=== PATIENT | male | born 1960 | race Caucasian/White ===

== ENCOUNTER 2018-11-12 07:10 | Outpatient (CLI) | payer OTHER ==
[2018-11-12] MEDS ORDERED: Gadobenate Dimeglumine 529 MG/1 ML (20ML VIAL) ONE (09:00)
--- NOTE | 2018-11-12 13:57 | MRI ---
BRAIN MRI WITH AND WITHOUT CONTRAST: Comparison: 07-25-18 History: Malignant neoplasm overlapping site of right bronchus. FINDINGS: Re-demonstrating of the susceptibility foci, the largest of which involves the high right frontal par ietal convexity, medially and the smaller involves the medial left frontal subcortical region. There is a moderate degree of vasogenic edema surrounding the larger region of the right frontoparietal reg ion. Intrinsic T1 hyperintense signal is present which may relate to residual blood products from a h emorrhagic metastasis, in light of the history of pulmonary malignancy. About the periphery of the ritchie sceptibility and intrinsic regional signal, there is evidence to indicate progressive peripheral enha ncement at site of above described moderate vasogenic edema. Area of enhancement measures 3 cm cranio caudal x 2.3 cm AP x 1.6 cm transverse. Grossly stable punctate enhancement at the medial left fronta l lobe within the region of the above noted susceptibility is seen. There is no midline shift. No nael triculomegaly. IMPRESSION: Progressive perilesional enhancement with moderate surround vasogenic edema of the medial right high frontoparietal convexity. There remains susceptibility and evidence to indicate intrinsic T1 signal f avoring sequellae from hemorrhagic metastasis in light of the patient's history of pulmonary malignan cy. Recommend continued imaging follow up. POS: MARK
--- NOTE | 2018-11-13 10:01 | CT ---
CT CHEST WITH CONTRAST CT ABDOMEN WITH CONTRAST CT PELVIS WITH CONTRAST: Date: 11/12/18 HISTORY: Malignant neoplasm of overlapping sites of the right bronchus. COMPARISON: Abdomen CT dated 03/07/18. FINDINGS: Nonspecific ground-glass opacities are present in the right lung base peripherally, likely a componen t of chemo-related lung disease. The pulmonary trunk is dilated, measuring 42 mm, similar. The triangular shaped nodule along the righ t minor fissure is unchanged, likely a small perifissural lymph node. There is a suture in the right upper lobe. No pneumothorax. No effusion. There is a defect of the left anterior thoracic wall, likely prior surgical resection, with a patch. No acute displaced rib fracture. No suspicious osteolytic or osteoblastic lesions. The sternum and manubrium are intact. Thoracic and lumbar spine are intact. There are small mediastinal, likely reactive, lymph nodes, especially in the pretracheal region, alth ough do not reach size criteria for enlargement. The adrenal glands are hypertrophied. There is aneurysmal dilatation of the infrarenal abdominal aort a, which measures up to 3.9 cm, similar to slightly increased in size from the comparison examination . No retroperitoneal adenopathy. Hypodensity intrapolar left renal cortex is similar. No splenic or liver mass. Gallbladder is contracted. No dilated loops of large or small bowel. The appendix is visualized and is normal. IMPRESSION: 1. Unchanged examination of chest, abdomen, and pelvis. No evidence for disease recurrence. 2. 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 POS: MARK
== END 2018-11-12 07:11 | disposition home or self-care (01) ==
LOC: SCSCT 07:10
PROVIDERS: ATTEND Internal Medicine Hematology & Oncology
DX: C34.81 Malignant neoplasm of overlapping sites of right bronchus and lung (principal); R91.8 Other nonspecific abnormal finding of lung field; G93.6 Cerebral edema
CPT/HCPCS: 70553; 71260; 74177; A9579

== ENCOUNTER 2019-01-07 09:38 | Outpatient (CLI) | payer OTHER ==
[2019-01-07] MEDS ORDERED: Gadobenate Dimeglumine 529 MG/1 ML (20ML VIAL) ONE (10:19)
--- NOTE | 2019-01-07 13:23 | MRI ---
MRI BRAIN WITH AND WITHOUT CONTRAST: DATE: 01-07-19 HISTORY: 58-year-old male with C79.31 adenocarcinoma-metastatic; C34.81 malignant neoplasm of overlapping site s of right bronchus. COMPARISON: 11-12-18, and outside facility's 04-02-18 and 03-28-18. TECHNIQUE: Multiple sequences obtained in axial, sagittal, and coronal planes; pre and post IV injection of gado linium-based contrast agent: 20 mL MultiHance. FINDINGS: Most of the current exam's images are severely degraded by patient motion. Again noted is the hemorrh agic mass in the right paramedian cerebrum, centered in the right centrum semiovale. It contains cent ral extracellular met hemoglobin, and a complete rim of hemosiderin, and has a popcorn internal appea glenda on T2WI, typical for cavernoma. It is surrounded by a moderate sized region of vasogenic edema. Located more anteriorly in a left paramedian frontal gyrus (apparently centered at the ovalle-white mat ter junction as seen on high quality outside facility image a 04-02-18, Image 34 of 94 Series 3), is t he much smaller focus of hemosiderin stain. It is difficult to obtain accurate size measurements for both of these lesions on the current study b ecause of the severe motion artifact. However, not counting the vasogenic edema, the size of the cent ral lesion itself probably has not significantly changed. No obvious new lesions are visualized. Vent ricles are normal in size and configuration. No significant mass effect or midline shift. Again noted are the extensive bilateral mastoid effusions. Enlarged lateral retropharyngeal lymph nodes are note d bilaterally. IMPRESSION: 1. No major interval change in the size of the hemorrhage right cerebral intraaxial mass with surroun ding vasogenic edema compared to outside MRI dating back to 03-28-18. 2. No significant interval change in the tiny hemosiderin stain in the left parasagittal frontal gyru s dating back to prior outside images of 03-28-18. 3. The current images are severely degraded by patient motion. 4. Despite the history of lung cancer, there is a strong possibility that the right mass could repres ent a cavernous malformation; and the tiny lesion on the left as another cavernous malformation or so me other non-neoplastic lesion; as alternative diagnoses to hemorrhagic brain metastases. 5. Continued follow up is recommended. BRUCE Schneider POS: TPC
== END 2019-01-07 09:39 | disposition home or self-care (01) ==
LOC: TBSIIMAG 09:38
PROVIDERS: ATTEND Surgery
DX: C79.31 Secondary malignant neoplasm of brain (principal); I61.9 Nontraumatic intracerebral hemorrhage, unspecified
CPT/HCPCS: 70553; A9577

== ENCOUNTER 2019-03-02 08:50 | Outpatient (CLI) | payer OTHER ==
[2019-03-02] MEDS ORDERED: Iopamidol 370 76% 100 ML VIAL ONE (09:00)
--- NOTE | 2019-03-02 13:59 | CT ---
Contrast-enhanced CT images of chest, abdomen and pelvis. Comparison made to previous exam from 11/12/2018. The patient's had a previous left upper lobectomy. The mediastinal lymph nodes are minimally enlarged but not significantly changed since the previous comparison exam. Surgical changes seen in the right middle lobe. This focal area of pleural thickening seen in the right middle lobe axial image #3 6 adjacent to the minor fissure. Previously noted bilateral areas of groundglass airspace opacities have resolved. No definite evidence of osseous lesion seen. No evidence of pleural or pericardial effusion seen. CT abdomen and pelvis: The liver is unremarkable except for tiny focal areas of likely cysts which ar e stable. Small early area of splenic calcifications seen compatible with previous granulomatous disease. The spleen is unremarkable. The stomach and gallbladder are unremarkable. The pancreas is un remarkable. Small stable cyst seen in the left kidney unchanged since the previous exam. The right kidney is unremarkable. Bilateral adrenal hypertrophy is seen. There is an infrarenal abdominal aortic aneurysm maximum axial diameter measuring 3.8 x 3.6 cm. The a neurysm extends from approximately 3.8 mm inferior to the takeoff of the renal arteries down to the aortic bifurcation. Superior inferior length of the aneurysm measures 7.6 cm. The aneurysm does not extend into the iliac arteries. The small bowel loops are unremarkable. A normal appendix is visualized. The colon is unremarkable. IMPRESSION: 1: Abdominal aortic aneurysm. 2: Postsurgical changes in the lungs. 3: No newly developed lung abnormality seen.
== END 2019-03-02 08:51 | disposition home or self-care (01) ==
LOC: SCSCT 08:50
PROVIDERS: ATTEND Internal Medicine Hematology & Oncology
DX: C34.81 Malignant neoplasm of overlapping sites of right bronchus and lung (principal); I71.4 Abdominal aortic aneurysm, without rupture; Z98.890 Other specified postprocedural states
CPT/HCPCS: 71260; 74177; Q9967

== ENCOUNTER 2019-03-03 11:25 | Day surgery (SDC) | payer OTHER ==
[2019-03-02 12:57] VITALS: BMI 33.2
[2019-03-03 12:28] LABS: Calc. Creatinine Clearance 149 mL/min (70-130); Estimated GFR-MDRD Greater than 90
--- NOTE | 2019-03-03 14:49 | MRI ---
MRI Brain W WO Con: 03/03/2019 12:00 AM CLINICAL HISTORY: Neoplasm. COMPARISON: 01/07/2019 FINDINGS: Extra axial spaces: Normal in size and morphology for the patient's age. Hemorrhage: Nidus of susceptibility within the posterior right centrum semiovale is present, grossly stable. Additional smaller susceptibility focus at the medial left frontal lobe is also redemonstrated. Ventricular system: Normal in size and morphology for the patient's age. Basal cisterns: Normal. Cerebral parenchyma: Redemonstration of enhancing mass which is associated with the above-described s usceptibility focus, involving posterior right centrum semiovale. Size of this finding is slightly distorted by motion. Diameter measures approximately 2.4 cm, slightly increased in volume. Surroundin g vasogenic edema remains, and has increased in volume. Punctate enhancement at the medial left frontal lobe correlating to site of susceptibility remains. Midline shift: None. Cerebellum: Normal. Brainstem: Normal. Paranasal sinuses:Scattered paranasal sinus mucosal thickening. Bilateral mastoid fluid IMPRESSION:Redemonstration of bilateral cerebral hemispheric susceptibility foci. Underlying enhancin g lesion of the right centrum semiovale currently measures 2.4 cm. This is slightly increased in volume although direct comparison is difficult due to the varying degrees of motion artifact between the 2 exams. Morphology of finding as well as the persistent, and progressive vasogenic edema favors hemorrhagic metastasis. Continued short-term imaging follow-up is recommended
== END 2019-03-03 15:45 | disposition home or self-care (01) ==
LOC: SDC/OP 11:25
PROVIDERS: ATTEND Surgery
DX: C79.31 Secondary malignant neoplasm of brain (principal); Z79.899 Other long term (current) drug therapy; Z88.5 Allergy status to narcotic agent; Z90.49 Acquired absence of other specified parts of digestive tract; Z90.2 Acquired absence of lung [part of]
CPT/HCPCS: 36415; 70553; 80053; 82248; 82565; 83615; 84100; 84443; 84550

== ENCOUNTER 2019-04-27 12:21 | Day surgery (SDC) | payer OTHER, MEDICARE ==
[2019-04-24 10:27] VITALS: BMI 32.3
--- NOTE | 2019-04-27 15:14 | MRI ---
BRAIN MRI WITH AND WITHOUT CONTRAST: DATE: 04/27/2019 COMPARISON: 03/03/2019 and prior. HISTORY: Intracranial metastatic disease. TECHNIQUE: Multiplanar multisequence MR imaging of the brain obtained with and without contrast. FINDINGS: The diffusion weighted imaging demonstrates no evidence for acute infarction. The gradient echo imaging demonstrates a focus of intra-axial blooming artifact involving the superio r aspect of the right temporal lobe. This focus of blooming artifact measures approximately 1.8 cm in AP dimension, similar when compared to the most recent prior examination. This lesion is of mixed heterogeneous signal intensity on FLAIR, T2, and T1 weighted imaging, which includes areas of T1 hypointensity and hyperintensity, on the basis of blood products. The postcontrast imaging demonstrat es peripheral enhancement of the lesion within the superior aspect of the right frontal lobe, the enhancing component measuring at least 2.7 cm in AP dimension, 2.3 cm in transverse dimension, and 3. 5 cm in craniocaudal dimension. This enhancing lesion has grown since the most recent prior examination at which time it measured approximately 2.4 x 2.0 x 3.1 cm. It appears to have grown sinc e the 01/07/2019 examination as well, although exact measurement is limited on that study secondary to motion. This has definitively enlarged since the 11/12/2018 examination at which time it measured 0.2 x 1.5 x 3.3 cm. There is prominent surrounding vasogenic edema involving the deep and subcortical white matter of the right frontal and anterior right parietal lobe extending inferiorly to involve the periventricular white matter adjacent to the body of the right lateral ventricle. The vasogenic edema associated with this lesion appears to have increased since the 03/03/2019 examination. There is no doubt this vasogenic edema has increased since the 11/12/2018 exam. There is an additional focus of blooming artifact within the medial aspect of the left frontal lobe. There is no surrounding vasogenic edema. This area of blooming artifact measures approximately 6 mm, which is unchanged when compared to studies dating back to 03/28/2018. This medial left frontal lo be focus of blooming artifact demonstrates no T2 correlate and demonstrates no abnormal enhancement. While this could represent a second lesion, this could also simply represent a focus of calcification and/or cavernoma. The visualized paranasal sinuses appear grossly unremarkable. There is a nonspecific mastoid effusion on the right, slightly more conspicuous than on the prior examination. There is no significant midline shift or mass effect on this examination. IMPRESSION: Interval enlargement and worsening vasogenic edema involving the hemorrhagic intra-axial lesion in th e right frontal region, most consistent with a hemorrhagic metastatic focus. There is a subcentimeter stable area of blooming artifact within the left frontal lobe which could represent a s econd metastatic lesion or a focus of calcification/cavernoma. Transcribed Date/Time: 04/27/2019 3:28 PM
[2019-04-27] MEDS ORDERED: hydrALAZINE 20 MG/ML VIAL ONE (15:27)
== END 2019-04-27 16:35 | disposition home or self-care (01) ==
LOC: MRI 12:21
PROVIDERS: ATTEND Surgery
DX: C79.31 Secondary malignant neoplasm of brain (principal); C80.1 Malignant (primary) neoplasm, unspecified; I10 Essential (primary) hypertension; M10.9 Gout, unspecified; F17.200 Nicotine dependence, unspecified, uncomplicated; F32.9 Major depressive disorder, single episode, unspecified; F41.9 Anxiety disorder, unspecified; G47.30 Sleep apnea, unspecified; Z88.5 Allergy status to narcotic agent; Z79.899 Other long term (current) drug therapy
CPT/HCPCS: 70553; J0360

== ENCOUNTER 2019-05-11 11:17 | Outpatient (CLI) | payer MEDICARE, OTHER ==
[2019-05-11 14:47] LABS: Hemoglobin 19.4 g/dL (14.0-18.0); Mean Corpuscular HGB CONC 33.2 g/dL (32.0-36.0); Mean Corpuscular Hemoglobin 30.7 pg (27.0-31.0); Mean Corpuscular Volume 92.6 fL (78.0-98.0); Mean Platelet Volume 8.3 fL (7.4-10.4); Platelet Count 214 thou/uL (130-400); Red Blood Cell (RBC) Count 6.32 mill/uL (4.70-6.10); White Blood Cell (WBC) Count 20.6 thou/uL (4.8-10.8)
[2019-05-11 14:49] LABS: INR-International Normal Ratio 1.8; PTT 46.8 SEC (22.9-36.1); Prothrombin Time 20.7 SEC (12.0-14.7)
[2019-05-11 15:02] LABS: Anion Gap 16 mmol/L (10-20); BUN (Urea Nitrogen) 14 mg/dL (8.4-25.7); Calc. Creatinine Clearance 0 mL/min (70-130); Calcium 9.3 mg/dL (7.8-10.44); Carbon Dioxide 23 mmol/L (22-29); Chloride 102 mmol/L (98-107); Estimated GFR-MDRD 78; Glucose 100 mg/dL (70-105); Potassium 4.1 mmol/L (3.5-5.1); Sodium 137 mmol/L (136-145)
== END 2019-05-11 11:18 | disposition home or self-care (01) ==
LOC: LABBT 11:17
PROVIDERS: ATTEND Surgery
DX: Z01.818 Encounter for other preprocedural examination (principal); C79.31 Secondary malignant neoplasm of brain
CPT/HCPCS: 80048; 85027; 85610; 85730; 93005; 93010

== ENCOUNTER 2019-05-11 12:30 | Inpatient (IN) | payer MEDICARE, OTHER ==
[~2019-05-11 12:30] MED LIST: Iopamidol 370 76% 100 ML VIAL ONE
--- NOTE | 2019-05-11 16:04 | CT ---
CT BRAIN WITH AND WITHOUT CONTRAST: BRAIN LAB PROTOCOL DATE: 05/11/19 HISTORY: Brain tumor. Preoperative planning. C79.31. COMPARISON: No prior brain CTs. There are multiple prior brain MRIs from [facility] and outside facility. TECHNIQUE: Precontrast scan of brain IV injection iodinated contrast media: 100 mL Isovue-370. Postcontrast scan of brain FINDINGS: At the high right frontal parasagittal convexity, there is an intra-axial lesion with a thin rim of i ntrinsically high density, with diameter of approximately 1 x 0.8 cm. It is surrounded by a region of vasogenic edema, which is disproportionately large compared to the size of the lesion. No definite e nhancement is visualized. This lesion could represent a cavernous malformation, but the inordinate am ount of vasogenic edema is atypical for that. There is a possibility that this could be a hemorrhage metastasis, but the features on the prior MRI and on this CT are also unusual for that. There are add itional tiny satellite calcifications around the right-sided lesion within the region of vasogenic ed pauline. Perhaps the surrounding vasogenic edema represents post radiation changes. The punctate tiny focus of magnetic susceptibility artifact located more anteriorly in the left naman agittal upper frontal lobe corresponds to a tiny focal calcific density on this CT. There is no mass effect or midline shift. No enhancing lesions are visualized overall intracranially. Ventricles are n ormal in size and configuration. No mass effect, midline shift, or extra-axial fluid collection. No d ural venous sinus thrombosis. No high grade stenosis or aneurysm involving proximal arteries of circl e of St. IMPRESSION: Small ring-shaped lesion with thin, hyperdense rim and low density center in right upper posterior fr ontal lobe with disproportionately large amount of surrounding vasogenic edema. Differential diagnosi s is atypical cavernous malformation versus hemorrhagic metastasis. The lesion does not have a typica l appearance for either. BRUCE Schneider POS: CET
[2019-05-12] MEDS ORDERED: Thrombin 5000 UNITS/5 ML VIAL ONE (06:33)
[2019-05-12] MEDS ORDERED: Bacitracin Zinc Ointment 30 gm TUBE ONE (06:33)
[2019-05-12] MEDS ORDERED: Sodium Chloride 0.9% 10 ML ONE (06:33)
[2019-05-12] MEDS ORDERED: levETIRAcetam 500 MG/100 ML PREMIX BAG ONE (06:44)
[2019-05-12] MEDS ORDERED: levETIRAcetam 1000 MG/100 ML PREMIX BAG ONE (06:44)
[2019-05-12] MEDS ORDERED: Propofol 1,000 MG/100 ML VIAL IV ONE (06:44)
[2019-05-12] MEDS ORDERED: Famotidine 20 MG TAB ONE (07:01)
[2019-05-12] MEDS ORDERED: Midazolam HCl 2 mg/2 ml Vial ONE (07:01)
[2019-05-12] MEDS ORDERED: Famotidine/PF 20 mg/2ml Vial ONE (07:02)
[2019-05-12] MEDS ORDERED: Phenylephrine HCL 10 MG/ML VIAL ONE (07:18)
[2019-05-12] MEDS ORDERED: Fentanyl 100 MCG/2 ML VIAL ONE (07:18)
[2019-05-12] MEDS ORDERED: Albumin 5% 0 ML ONE (07:24)
[2019-05-12] MEDS ORDERED: Promethazine HCl 25 MG/ML VIAL SLOW IVP PRN (09:26)
[2019-05-12] MEDS ORDERED: Promethazine HCl 25 MG/ML VIAL IM PRN (09:26)
[2019-05-12] MEDS ORDERED: HYDROmorphone 2 MG/ML VIAL SLOW IVP PRN (09:26)
[2019-05-12] MEDS ORDERED: Morphine Sulfate 2 MG/ML SYRINGE SLOW IVP PRN (09:26)
[2019-05-12] MEDS ORDERED: Ondansetron HCl/PF 4 MG/2 ML Vial IVP PRN (09:26)
[2019-05-12] MEDS ORDERED: PACU-Morphine 4MG/ML VIAL SLOW IVP PRN (09:26)
[2019-05-12] MEDS ORDERED: Labetalol HCl 100 MG/20 ML VIAL SLOW IVP PRN (10:19)
[2019-05-12] MEDS ORDERED: Ondansetron PF 4 MG/2 ML Vial IVP PRN (10:19)
[2019-05-12] MEDS ORDERED: Mag-Al 1200 mg/1200 mg/30 ML UDCUP PO PRN (10:19)
[2019-05-12] MEDS ORDERED: HYDROcodone/Acetaminophen 7.5/325 mg Tablet PO PRN (10:19)
[2019-05-12] MEDS ORDERED: Acetaminophen 325 MG TAB PO PRN (10:19)
[2019-05-12] MEDS ORDERED: Docusate 100 MG CAP PO PRN (10:19)
[2019-05-12] MEDS ORDERED: Fleet Enema 133 ML BOT PR PRN (10:45)
[2019-05-12] MEDS ORDERED: Morphine 2 MG/ML SYRINGE SLOW IVP PRN (10:45)
[2019-05-12] MEDS ORDERED: Morphine 4 MG/ML VIAL ONE (10:48)
[2019-05-12] MEDS ORDERED: Labetalol HCl 100 MG/20 ML VIAL ONE (11:01)
[2019-05-12] MEDS: Sodium Chloride 0.9% 1,000 ML IV SCH (11:42)
[2019-05-12 11:52] VITALS: BMI 32.3
[2019-05-12] MEDS ORDERED: Rocuronium Bromide 10 MG/ML (10ML VIAL) ONE (11:55)
[2019-05-12] MEDS ORDERED: Ondansetron PF 4 MG/2 ML Vial ONE (11:55)
[2019-05-12] MEDS ORDERED: Dexamethasone 20 MG/5 ML VIAL ONE (11:55)
[2019-05-12] MEDS ORDERED: PROPOFOL 200 MG/20 ML VIAL ONE (11:55)
[2019-05-12] MEDS ORDERED: PHENYLEPHRINE-NS 100 MCG/ML 10 ML SYRINGE ONE (11:55)
[2019-05-12] MEDS ORDERED: Vecuronium 10 MG VIAL ONE (11:55)
[2019-05-12] MEDS ORDERED: Lidocaine 1% PF 5 ML VIAL ONE (11:55)
[2019-05-12 12:38] LABS: Actual Bicarbonate (HCO3a) 27.1 mEq/L (22-28); Base Excess (BEa) -0.1 mEq/L (-2.0 to +3.0); CO2 Tension 52.4 mmHg (35.0-45.0); Calcium, Ionized 1.14 mmol/L (1.12-1.30); Carboxyhemoglobin (COHb) 4.8 gm% (0.0-3.0); Hemoglobin (Hb) 18.6 g/dL (14.0-18.0); O2 Tension (PaO2) 126.2 mmHg (80.0-100.0); Potassium - ABG Lab 4.69 mmol/L (3.70-5.30); pH, Arterial 7.33 (7.35-7.45)
[2019-05-12] MEDS: Dexamethasone 4 mg/ml Vial SLOW IVP SCH ×3 (12:38→23:04)
[2019-05-12 12:39] LABS: Puncture Site ALINE
--- NOTE | 2019-05-12 13:07 | OP ---
DATE OF PROCEDURE: 05/12/2019 LOCATION: OR 11. WOUND CLASSIFICATION: Type 1 wound. SOUND EFFECTS PERSON: [place]. PREPROCEDURE DIAGNOSES: Enlarging right frederic-rolandic mass with treatment failure and enlargement of metastatic adenocarcinoma versus radiation necrosis. POSTPROCEDURE DIAGNOSES: Enlarging right frederic-rolandic mass with treatment failure and enlargement of metastatic adenocarcinoma versus radiation necrosis, possible fungal elements. PROCEDURE PERFORMED: 1. Right frontal stereotactic craniotomy for tumor resection. 2. Stereotactic planning with MRI and CT. DESCRIPTION OF PROCEDURE: After informed consent was obtained from the patient, the patient was brought to the OR. Proper patient, pause, and identification were carried out. He was placed under excellent general endotracheal anesthesia and positioned supine on the OR table. His head was secured in the Pettit ksenia head host/hostess and stereotactic registration occurred with excellent accuracy. A linear coronal incision was drawn out. This area was sterilely cleansed, prepared, and draped. Proper patient, pause, and identification were again carried out, and the stereotactic registration confirmed. We then turned our attention to the procedure. Scalp was then opened in a circular craniotomy fashion. The dura reflected. A large cortical vein was protected. We then entered the radha just posterior to the large cortical vein and came down into the lesion. It was necrotic appearing and yellow and resected in total. I sent the full specimen to Pathology as one specimen and resected until normal white matter was identified. I was careful to protect the underlying subcortical white matter. Copious irrigation occurred throughout. We maximized hemostasis. 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 The wound was then again copiously irrigated and maximized hemostasis. The dura was then reapproximated and the bone flap affixed to the skull with titanium plates and screws. The wound was then closed in anatomic layers. The patient emerged from anesthesia. Job ID: [id number]
[2019-05-12] MEDS: CEFAZOLIN 2 GM in Premix Bag 1 BAG IVPB SCH ×2 (13:31→21:45)
[2019-05-12] MEDS: Gabapentin 100 MG CAP PO SCH ×2 (15:50→20:43)
--- NOTE | 2019-05-12 16:38 | CON ---
DATE OF CONSULTATION: 05/12/2019 HISTORY OF PRESENT ILLNESS: Mr. Gunn is a 58-year-old male who was admitted to the ICU after a craniotomy to resect the tumor. He has a history of lung cancer reportedly. There are no history and physical notes in the computer. It is unclear to me whether diagnostic workup was done. I was consulted because of his presence in the critical care unit in fact that he was hypoventilating postoperatively as noted by the nurses and respiratory therapist. PHYSICAL EXAMINATION: VITAL SIGNS: His heart rate is in the 50s, blood pressure 96/65, respiratory rate is in the 8-10 range. He was stimulated and then picked up into the teens. Oximetry is 96%. HEENT: His pupils are equal. Sclerae are anicteric. NECK: Without lymphadenopathy. LUNGS: Clear. HEART: Regular rhythm. S1 and S2 are normal. ABDOMEN: Soft. EXTREMITIES: Without clubbing, cyanosis, or edema. He was examined multiple times. His tidal volumes gradually increased to about 500 mL, although he is breathing 10 to 12 times a minute. LABORATORY DATA: Blood gas today; 7.33, CO2 of 52, pO2 of 126. Sodium 135, potassium 4.6, chloride 101, that is on a pressure support of 10, PEEP of 5, rate of 11 on his own. IMPRESSION: Postoperative hypoventilation secondary to delayed clearance of anesthesia. He appears stable with adequate volumes on CPAP support. He does not need re-intubation. We will continue to watch him closely. TIME SPENT: 30 minutes of Critical Care time. Job ID: [id number]
[2019-05-12] MEDS: levETIRAcetam 500 MG TAB PO SCH (20:43)
[2019-05-12] MEDS: Potassium Chloride 10 MEQ TAB PO SCH (20:43)
[2019-05-12] MEDS: Lorazepam 0.5 MG TAB PO SCH (21:11)
[2019-05-13] MEDS: Sodium Chloride 0.9% 1,000 ML IV SCH ×3 (01:00→17:48)
[2019-05-13 05:47] LABS: #Lymphocytes 2.1 thou/uL (1.20-3.40); #Monocytes 0.7 thou/uL (0.11-0.59); #Neutrophils 12.6 thou/uL (1.40-6.50); %Basophils 0.1 % (0.0-1.0); %Eosinophils 0.2 % (0.0-10.0); %Lymphocytes 13.6 % (21.0-51.0); %Monocytes 4.5 % (0.0-10.0); %Neutrophils 81.6 % (42.0-75.0); Hemoglobin 16.6 g/dL (14.0-18.0); Mean Corpuscular HGB CONC 31.3 g/dL (32.0-36.0); Mean Corpuscular Hemoglobin 30.1 pg (27.0-31.0); Mean Corpuscular Volume 96.2 fL (78.0-98.0); Platelet Count 185 thou/uL (130-400); White Blood Cell (WBC) Count 15.4 thou/uL (4.8-10.8)
[2019-05-13] MEDS: oxyCODONE 5 MG TAB PO PRN ×3 (05:53→17:46)
[2019-05-13] MEDS: Dexamethasone 4 mg/ml Vial SLOW IVP SCH ×3 (05:56→17:48)
[2019-05-13 06:05] LABS: Anion Gap 10 mmol/L (10-20); BUN (Urea Nitrogen) 15 mg/dL (8.4-25.7); Calc. Creatinine Clearance 138 mL/min (70-130); Calcium 8.2 mg/dL (7.8-10.44); Carbon Dioxide 28 mmol/L (22-29); Chloride 101 mmol/L (98-107); Estimated GFR-MDRD 88; Glucose 114 mg/dL (70-105); Potassium 4.4 mmol/L (3.5-5.1); Sodium 135 mmol/L (136-145)
--- NOTE | 2019-05-13 07:41 | CT ---
PRELIMINARY REPORT/[facility]/EMERGENCY AFTER HOURS PROCEDURE EXAM: CT Head Without Contrast EXAM DATE/TIME: 05/13/2019 3:59 AM CLINICAL HISTORY: 58 years old, male; Condition or disease; Other: S/P craniotomy; Prior surgery; Surgery date: Postope rative (0-2 days) TECHNIQUE: Imaging protocol: Axial computed tomography images of the head without contrast. COMPARISON: No relevant prior studies available. FINDINGS: Brain: Nondependent right frontal pneumocephalus. 2.7 cm complex mass lesion in superior right fronta l lobe with surrounding vasogenic edema. Trace hyperdensity at the periphery the mass may be related to the density of a mass or could signify tiny amount of acute intraparenchymal or subarachnoid blood related to brain biopsy. No priors for comparison. Midline shift: No midline shift. Ventricles: Normal. No ventriculomegaly. Bones/joints: See Mastoid Air Cells Finding. Sinuses: Visualized sinuses are unremarkable. No fluid levels. Mastoid air cells: Partial opacification of the right mastoid air cells. No perceptible mastoid fract ure. No osseous erosion, overlying inflammation, or subperiosteal abscess to indicate mastoiditis. Soft tissues: Unremarkable. IMPRESSION: 2.7 cm complex mass lesion in superior right frontal lobe with surrounding vasogenic edema. Trace hyp erdensity at the periphery the mass may be related to the density of a mass or could signify tiny eleazar unt of acute intraparenchymal or subarachnoid blood related to brain biopsy. No priors for comparison . Thank you for allowing us to participate in the care of your patient. Dictated and Authenticated by: Laurent Shabazz MD 05/13/2019 4:57 AM Central Time ([place] & [place]) FINAL REPORT CT BRAIN WITHOUT IV CONTRAST: EMERGENT AFTER HOURS EXAM 05/13/2019 4:00 a.m. Postop right craniotomy change. Complex mass in the right frontal lobe with vasogenic edema with maritza e associated parenchymal and possibly a tiny amount of subarachnoid hemorrhagic change. Evidence for pneumocephalus. No significant midline shift. IMPRESSION: No significant acute process post craniotomy. This report is in agreement with the preliminary report. POS: OFF
[2019-05-13] MEDS: Pantoprazole 40 MG VIAL IVP SCH (09:33)
[2019-05-13] MEDS: Escitalopram Oxalate 10 mg Tablet PO SCH (09:33)
[2019-05-13] MEDS: Potassium Chloride 10 MEQ TAB PO SCH ×2 (09:33→20:55)
[2019-05-13] MEDS: Furosemide 40 MG TAB PO SCH (09:33)
[2019-05-13] MEDS: Propranolol 40 MG TAB PO SCH (09:33)
[2019-05-13] MEDS: Gabapentin 100 MG CAP PO SCH ×3 (09:34→20:55)
[2019-05-13] MEDS: Lorazepam 0.5 MG TAB PO SCH (09:34)
[2019-05-13] MEDS: levETIRAcetam 500 MG TAB PO SCH ×2 (09:34→20:55)
--- NOTE | 2019-05-13 09:51 | PRG ---
DATE OF SERVICE: 05/13/2019 Mr. Gunn is postoperative day 1 from right frontal perirolandic stereotactic craniotomy lesion resection. 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 He is certainly more hemiparetic in the left upper and lower extremity compared to before surgery. However, he is able to bend his left leg at the knee and moves it certainly more robust than he did after surgery. He remains with severe weakness in the left upper extremity, but interestingly no left facial droop. I suspect this is subcortical elise radiata fibers involvement. Head CT demonstrates resection of the mass with expected postoperative changes. We will continue Decadron and antiepileptic. It is possible that he had a postoperative seizure that was subclinical as he was emerging from anesthesia and has a subsequent Larry's paralysis which has a very favorable prognosis. We will continue to treat him expectantly and transfer to the floor and encourage rehab. Job ID: [id number]
[2019-05-13] MEDS: OXYCODONE MYRISTATE 36 MG PO SCH (13:20)
--- NOTE | 2019-05-13 15:35 | PRG ---
DATE OF SERVICE: 05/13/2019 SUBJECTIVE: Mr. Gunn is doing well this morning. He said he slept great with CPAP last night. I suspect he has untreated sleep apnea. OBJECTIVE: VITAL SIGNS: Stable overnight, afebrile, heart rate 50, respiratory rate 16, oximetry 96% on room air, and blood pressure 129/82. LUNGS: Clear. HEART: Regular rhythm. ABDOMEN: Soft. IMPRESSION: Status post craniotomy for metastatic disease. PLAN: 1. We will continue with his BiPAP with sleep. 2. He is awake and alert at this time. Job ID: [id number]
[2019-05-13] MEDS: Lorazepam 1 MG TAB PO SCH (20:55)
[2019-05-14] MEDS: Dexamethasone 4 mg/ml Vial SLOW IVP SCH ×4 (00:05→18:18)
[2019-05-14] MEDS: Dexamethasone 1 MG TAB PO SCH ×4 (05:57→23:42)
[2019-05-14] MEDS: Sodium Chloride 0.9% 1,000 ML IV SCH ×2 (06:00→18:17)
[2019-05-14] MEDS: Potassium Chloride 10 MEQ TAB PO SCH ×2 (09:49→20:39)
[2019-05-14] MEDS: Furosemide 40 MG TAB PO SCH (09:50)
[2019-05-14] MEDS: Escitalopram Oxalate 10 mg Tablet PO SCH (09:50)
[2019-05-14] MEDS: levETIRAcetam 500 MG TAB PO SCH ×2 (09:50→20:41)
[2019-05-14] MEDS: Gabapentin 100 MG CAP PO SCH ×3 (09:50→20:39)
[2019-05-14] MEDS: Pantoprazole 40 MG VIAL IVP SCH (09:50)
[2019-05-14] MEDS: Lorazepam 1 MG TAB PO SCH ×2 (09:51→20:39)
[2019-05-14] MEDS: oxyCODONE 5 MG TAB PO PRN (09:56)
--- NOTE | 2019-05-14 10:45 | ULT ---
BILATERAL LOWER EXTREMITY VENOUS DUPLEX EXAM: Date: 05/14/19 HISTORY: Recent surgery, impaired mobility. History of PE. FINDINGS: Real-time color Doppler evaluation of right and left lower extremity was performed from groin to calf . This includes evaluation of the common femoral, superficial and profunda femoral, saphenous, poplit eal, and trifurcation veins. This shows patent deep venous systems bilaterally. There is normal compr essibility and augmentation. There is no evidence of deep venous thrombosis. IMPRESSION: No evidence of deep venous thrombosis of either lower extremity. POS: TPC
[2019-05-14] MEDS: OXYCODONE MYRISTATE 36 MG PO SCH (13:51)
[2019-05-14] MEDS: Propranolol 40 MG TAB PO SCH (14:00)
--- NOTE | 2019-05-14 15:47 | PRG ---
DATE OF SERVICE: 05/14/2019 SUBJECTIVE: Mr. Gunn's only complaint is his [place]. OBJECTIVE: VITAL SIGNS: Afebrile. Heart rate 75, respiratory rate 14, oximetry is 95% on room air, and blood pressure 163/97. LUNGS: Clear. HEART: Regular rate and rhythm. S1 and S2 are normal. ABDOMEN: Soft and nontender. EXTREMITIES: Without edema. PLAN: We will recommend that we pull his [place] and monitor his urine output. He is tentatively going to rehab. He had Doppler of his legs today, which showed no evidence of DVT. He likes sleeping with CPAP. He will need to come to the office for an outpatient scheduling of his sleep study. He does well in the perioperative period. We will continue to follow as long as he is in the hospital. Job ID: [id number]
[2019-05-14] MEDS: OXYCODONE MYRISTATE 18 MG PO SCH ×3 (18:16→23:42)
[2019-05-15] MEDS: Dexamethasone 1 MG TAB PO SCH (05:29)
[2019-05-15] MEDS: Sodium Chloride 0.9% 1,000 ML IV SCH ×2 (05:31→20:14)
[2019-05-15] MEDS: Potassium Chloride 10 MEQ TAB PO SCH ×2 (09:00→20:16)
[2019-05-15] MEDS: Gabapentin 100 MG CAP PO SCH ×3 (09:00→20:10)
[2019-05-15] MEDS: levETIRAcetam 500 MG TAB PO SCH ×2 (09:00→20:11)
[2019-05-15] MEDS: Escitalopram Oxalate 10 mg Tablet PO SCH (09:00)
[2019-05-15] MEDS: Propranolol 40 MG TAB PO SCH (09:00)
[2019-05-15] MEDS: Furosemide 40 MG TAB PO SCH (09:01)
[2019-05-15] MEDS: Lorazepam 1 MG TAB PO SCH ×2 (09:01→20:12)
[2019-05-15] MEDS: Pantoprazole 40 MG VIAL IVP SCH (09:02)
--- NOTE | 2019-05-15 09:43 | PRG ---
DATE OF SERVICE: 05/15/2019 Mr. Gunn is postoperative day #3 following a right perirolandic metastatic adenocarcinoma resection. 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 He remains without left upper motor neuron pattern facial droop and mild weakness in the left lower extremity. He has significant weakness in the left upper extremity, which is new compared to before surgery, this is likely due to in the involvement of the lesion into the elise radiata related to surgical resection, although he does have some trace movement into this left upper extremity. I will do a prolonged taper, and I have spoken to him about not putting his hand over his wound. We will try to keep this covered. It is healing well. He needs to go to rehab. Job ID: [id number]
--- NOTE | 2019-05-15 09:54 | PRG ---
DATE OF SERVICE: 05/15/2019 SUBJECTIVE: Yayo Gunn has no complaints. He is sitting in a bedside chair. OBJECTIVE: VITAL SIGNS: His heart rate is in the 50s, afebrile, respiratory rate is in the teens, oximetry is 99% on room air, and blood pressure 136/93. LUNGS: Clear. HEART: Regular rhythm. ABDOMEN: Soft. LABORATORY DATA: There is no new lab. IMPRESSION: 1. Status post craniotomy for metastatic lung cancer. 2. Mild encephalopathy. 3. Apneic episodes and hypoventilation after surgery. He probably has untreated sleep apnea. It is very debatable whether or not this needs to be worked up given his prognosis. He is stable to move to rehab when a bed becomes available. Job ID: [id number]
[2019-05-15] MEDS: Dexamethasone 4 MG TAB PO SCH ×2 (12:57→19:25)
[2019-05-15] MEDS: OXYCODONE MYRISTATE 36 MG PO SCH (15:54)
[2019-05-16] MEDS: Dexamethasone 4 MG TAB PO SCH ×3 (00:56→14:15)
[2019-05-16] MEDS: OXYCODONE MYRISTATE 18 MG PO SCH (00:56)
[2019-05-16] MEDS ORDERED: Dexamethasone 1 MG TAB PO SCH (06:00)
[2019-05-16] MEDS: Escitalopram Oxalate 10 mg Tablet PO SCH (08:54)
[2019-05-16] MEDS: Potassium Chloride 10 MEQ TAB PO SCH (08:54)
[2019-05-16] MEDS: Furosemide 40 MG TAB PO SCH (08:55)
[2019-05-16] MEDS: Gabapentin 100 MG CAP PO SCH ×2 (08:55→14:15)
[2019-05-16] MEDS: levETIRAcetam 500 MG TAB PO SCH (08:55)
[2019-05-16] MEDS: Pantoprazole 40 MG VIAL IVP SCH (08:56)
[2019-05-16] MEDS: Lorazepam 1 MG TAB PO SCH (08:56)
[2019-05-16] MEDS: Propranolol 40 MG TAB PO SCH (08:56)
[2019-05-16] MEDS ORDERED: Senokot S 8.6-50 MG TAB PO SCH (09:00)
[2019-05-16] MEDS: Sodium Chloride 0.9% 1,000 ML IV SCH ×2 (09:00→11:35)
--- NOTE | 2019-05-16 09:46 | PRG ---
DATE OF SERVICE: 05/16/2019 I saw Yayo Gunn in our hospital room this morning. 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 Postoperatively, he has some expected weakness in the left upper extremity more so than the lower extremity and none really in the face. He is good candidate for inpatient rehabilitation and a bed is ready for him, per his report this morning. We can make a transfer at any time. Job ID: [id number]
[2019-05-16] MEDS: OXYCODONE MYRISTATE 36 MG PO SCH (12:01)
--- NOTE | 2019-05-16 12:14 | PRG ---
DATE OF SERVICE: 05/16/2019 SUBJECTIVE: This morning, he is awake, alert, and responsive. He is sleeping on his CPAP at nighttime. No pain. No shortness of breath. OBJECTIVE: VITAL SIGNS: Saturations are 94% on room air, respirations 14, pulse 51, temperature 97, blood pressure 146/92. CHEST: Decreased breath sounds. No wheezing. CARDIAC: Normal S1, S2. No gallops. ABDOMEN: Soft. No masses. IMPRESSION: Sleep apnea, status post craniotomy. No specific diagnosis was made. 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 PLAN: Continue supportive care, PT, and placement. Job ID: [id number]
[2019-05-16 15:35] VITALS: BP 134/80; TEMP 98.9
[2019-05-18] MEDS ORDERED: Dexamethasone 1 MG TAB PO SCH (06:00)
[2019-05-20] MEDS ORDERED: Dexamethasone 1 MG TAB PO SCH (09:00)
[2019-05-22] MEDS ORDERED: Dexamethasone 1 MG TAB PO SCH (09:00)
== END 2019-05-16 15:55 | DRG 26 ==
LOC: SURG A 05-12 05:55 → CCU 05-12 10:50 → SURG B 05-13 13:23
PROVIDERS: ADMIT Surgery; ATTEND Surgery
PROC: 00B00ZZ Excision of Brain, Open Approach (ICD-10-PCS; principal; 2019-05-12)
PROC: 8E09XBH Computer Assisted Procedure of Head and Neck Region, With Magnetic Resonance Imaging (ICD-10-PCS; 2019-05-12)
DX: C79.31 Secondary malignant neoplasm of brain (principal); G93.40 Encephalopathy, unspecified; G47.30 Sleep apnea, unspecified; Z85.118 Personal history of other malignant neoplasm of bronchus and lung
CPT/HCPCS: 36415; 70450; 70460; 80048; 82805; 85025; 85027; 85610; 85730; 86850; 86900; 86901; 88307; 88313; 88331; 88332; 88341; 88342; 93005; 93010; 93970; 94640; 94660; C1713; C9113; J0131; J0690; J1100; J1953; J2001; J2250; J2270; J2370; J2405; J2704; J3010; J3490; J7620; J8540; P9045; Q9967; S0028

== ENCOUNTER 2019-06-21 23:00 | Inpatient (IN) | payer MEDICARE, OTHER ==
[2019-06-21] MEDS ORDERED: Acetaminophen 500 MG TAB ONE (23:32)
[2019-06-21 23:51] LABS: #Basophils 0.1 thou/uL (0.0-0.2); #Eosinphils 0.2 thou/uL (0.0-0.7); #Lymphocytes 2.9 thou/uL (1.20-3.40); #Neutrophils 8.9 thou/uL (1.40-6.50); %Basophils 0.7 % (0.0-1.0); %Eosinophils 1.3 % (0.0-10.0); %Lymphocytes 22.3 % (21.0-51.0); %Monocytes 7.7 % (0.0-10.0); %Neutrophils 68.1 % (42.0-75.0); Hemoglobin 18.2 g/dL (14.0-18.0); Mean Corpuscular HGB CONC 33.6 g/dL (32.0-36.0); Mean Corpuscular Hemoglobin 32.6 pg (27.0-31.0); Mean Corpuscular Volume 97.1 fL (78.0-98.0); Mean Platelet Volume 7.9 fL (7.4-10.4); Platelet Count 158 thou/uL (130-400); RBC Distribution Width 16.6 % (11.5-14.5); Red Blood Cell (RBC) Count 5.59 mill/uL (4.70-6.10)
--- NOTE | 2019-06-21 23:52 | RAD ---
EXAM: CHEST ONE VIEW PORTABLE: History: TIA, seizure. Status post brain tumor removal one month ago. FINDINGS: Heart size is within normal limits. Increased linear and interstitial markings are noted in the perih ilar regions and midlung zones, but appearance does not appear to be significantly changed from a sco ut film from a CT chest 03-02-19. There is minimal bilateral pleural thickening. No confluent pneumoni a, overt edema or pleural effusion. IMPRESSION: Minimal stable appearing chronic changes. Minimal bilateral pleural thickening. No significant acute process. POS: H
[2019-06-22 00:11] LABS: ALT (SGPT) 16 U/L (8-55); AST (SGOT) 13 U/L (5-34); Albumin 3.6 g/dL (3.5-5.0); Alkaline Phosphatase 95 U/L (40-150); Anion Gap 12 mmol/L (10-20); BUN (Urea Nitrogen) 12 mg/dL (8.4-25.7); Bilirubin, Total 0.7 mg/dL (0.2-1.2); Calc. Creatinine Clearance 0 mL/min (70-130); Calcium 8.7 mg/dL (7.8-10.44); Carbon Dioxide 27 mmol/L (22-29); Chloride 105 mmol/L (98-107); Estimated GFR-MDRD Greater than 90; Globulin 2.3 g/dL (2.4-3.5); Glucose 87 mg/dL (70-105); Potassium 3.9 mmol/L (3.5-5.1); Protein, Total 5.9 g/dL (6.0-8.3); Sodium 140 mmol/L (136-145)
[2019-06-22 00:32] LABS: CKMB 1.2 ng/mL (0-6.6)
[2019-06-22] MEDS ORDERED: Morphine 4 MG/ML VIAL ONE ×3 (00:49→13:29)
[2019-06-22] MEDS ORDERED: Acetaminophen 325 MG TAB PO PRN (03:01)
[2019-06-22] MEDS ORDERED: Senokot S 8.6-50 MG TAB PO PRN (03:01)
[2019-06-22] MEDS ORDERED: Ondansetron PF 4 MG/2 ML Vial IVP PRN (03:01)
[2019-06-22] MEDS ORDERED: hydrALAZINE 20 MG/ML VIAL SLOW IVP PRN (03:16)
[2019-06-22] MEDS ORDERED: levETIRAcetam 500 MG/100 ML PREMIX BAG ONE (03:16)
[2019-06-22] MEDS ORDERED: levETIRAcetam In NaCl (Iso-Os) 1,000 MG in Premix Bag 1 BAG IVPB SCH (03:45)
[2019-06-22 03:56] LABS: Bacteria/HPF None Seen HPF (None Seen); Bilirubin Negative (Negative); Blood, Urine Trace (Negative); Clarity Clear (Clear); Glucose, Urine (Dipstick) Normal (Negative); Leukocyte Negative Leu/uL (Negative); Nitrite Negative (Negative); Protein, Urine (Dipstick) Negative (Neg-Trace); Squamous Epithelial None Seen HPF (0-3); Urobilinogen Normal mg/dL (Less than 2); WBC/HPF 0-3 HPF (0-3)
[2019-06-22 04:26] LABS: CKMB 1.2 ng/mL (0-6.6)
--- NOTE | 2019-06-22 04:42 | HP ---
This is Tom Quiros PA-C dictating a report for Ghulam Wise MD. This is a 50-minute initial patient evaluation of which greater than 50% of the exam was spent counseling and coordinating the patient's care. Remainder of the exam was spent in review of patient's medical records and review of appropriate imaging studies. CHIEF COMPLAINT: Left-sided weakness with possible seizure-like activity, status post right frontal craniotomy on 05/12/2019. HISTORY OF PRESENT ILLNESS: Mr. Gunn is a 58-year-old male, who is well known to both Dr. Wise and me. He did undergo a right frontal craniotomy for tumor resection. The surgery was on 05/12/2019 and later pathology was consistent with tumor necrosis without any type of viable tumor noted in the pathology. The patient has a history of metastatic adenocarcinoma of the left lung. The patient states he has done fairly well postoperatively other than continued complaints of headache. He is on oxycodone as given to him by palliative care. He states that he was progressing in regard to improvement in left arm and leg weakness as he was left with this postoperatively. He states over the past few weeks, he was able to walk unassisted at home, but had stable weakness into the left arm, especially into the left hand. He states he felt as though he had rhythmic leg twitching of the left leg and then subsequent increased weakness in the left leg and arm, which prompted him to come to the emergency room. No family is at bedside to help with the patient's medical history. It is unclear if he has missed his Keppra. He was also on a 30 day taper of Decadron and it is unclear if he stopped this. As I have reviewed his medications in his bag they brought today, there is some Decadron that may be left over from previous prescription. Nonetheless, the patient denies fever, chills, or decreased appetite. He states overall he actually has been feeling fairly well. He denies any nausea, vomiting, blurred vision, but continues again with headaches that have been relatively stable since his surgery. He states he has not been touching his wound other than in the shower. He has had no drainage from the wound and no significant tenderness to the wound when he showers. Fortunately, he continues to smoke and I have discussed the importance of smoking cessation regards to his care especially in regard to his wound healing. The patient denies falls and has been working with home health therapy. On review of the patient's head CT, notes some profound vasogenic edema surrounding the operative cavity in the right frontal, temporal, and parietal lobe. There does not appear to be any acute intracranial hemorrhage. There does appear may be enough mass effect of the swelling that is pressing on his bone flap and a very, very trace midline shift. On physical exam, the patient is awake, alert, and appropriate. GCS 15. Follows commands equally in all 4 extremities. He does have good strength in the right arm and right leg, but does have profound weakness into the left arm greater than left leg. He states this weakness is more severe than what it was even several hours ago. He does have some flicker of movement and attempts to be able to squeeze the hand on the left, which is stable compared to what it was when I saw him in the clinic 2 to 3 weeks ago. He has almost no movement at the elbow and into the deltoid as he did previously. He has intact sensation to light touch throughout all the extremities. In regard to the left leg, he is antigravity and appears to have moderate dorsiflexion and plantar flexion on the left. His incision has some scabbing throughout it with a very very mild amount of surrounding erythema. There is some wound breakdown, however, there is no drainage from the incision. We palpated, I cannot express any type of drainage. There is no swelling at the incision site. There are signs again of wound breakdown, but no alejandra dehiscence and there is no visible bone flap that I can see. There is no tenderness to palpation of the incision or surrounding area nor is there any swelling or tension on the wound and there is no bogginess to the incision. I cannot feel any type of movement of the bone flap. IMPRESSION AND DIAGNOSIS: 1. Status post right frontal craniotomy for tumor resection. Pathology consistent with tumor necrosis. 2. History of lung adenocarcinoma. 3. Tobacco abuse. 4. Headaches. 5. 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 PLAN: I have spoken with Dr. Wise in regard to the patient's case and imaging. At this time, this vasogenic edema is worrisome for possible abscess. Therefore, in order to fully evaluate the patient, we need an MRI of the brain with and without contrast. This has been ordered. We will admit the patient to CCU for close neurologic evaluation, although the patient really does appear to be neurologically stable at this time. He is somewhat delayed, but this appears to be consistent with what I have seen previously. Nonetheless, he is afebrile with a temperature of 98.8. His sedimentation rate is not elevated and his CRP is mildly elevated at 0.73. White blood cell count is also mildly elevated at 13, though this could be related to his steroid use, it is unclear at this time. I will go ahead and load the patient with a 1000 mg of Keppra, continue with his maintenance dose of 500 mg b.i.d. The patient will be n.p.o. I would like his systolic blood pressure to remain less than 150 and his head of bed elevated at 30 degrees. He will be on bed rest given his fall risk. I have also ordered a UA and blood cultures. His troponin was high, although his CK-MB was not, but we will redraw all those labs and I have also made sure that a BNP has been ordered. I have consulted Pulmonology as well as for help in medically managing the patient. We will follow up on the ordered studies as well as the MRI and determine if a wound washout is necessary. Please call with any changes in patient's neurologic status. Otherwise, we will follow up. Job ID: [id number]
[2019-06-22] MEDS: Sodium Chloride 0.9% 1,000 ML IV SCH ×2 (05:00→17:41)
[2019-06-22 05:34] VITALS: BMI 31.4
[2019-06-22] MEDS: Morphine 2 MG/ML SYRINGE SLOW IVP PRN ×6 (06:55→23:46)
--- NOTE | 2019-06-22 07:33 | CT ---
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 PT reports metastatic brain tumor removed with left sided motor deficits since, PT denies any sensory deficits. PT reports that he was walking back from the bathroom when he sat down and within one minute his L foot started twitching then his whole L leg started twitching then L arm. PT reports that he remembers the whole incident and had no control over the twitching. EMS reports facial droop that cured prior to their arrival. PT reports that Dr. Rox pelaez did his brain tumor removal surgery. Daughter reports that PT is on Keppra and PT reports that he is compliant and has not missed a dose. PT reports associated headache but denies any other complaints TECHNIQUE: Imaging protocol: Computed tomography images of the head without contrast. COMPARISON: CT Brain WO Con 05/13/2019 3:59 AM FINDINGS: Brain: 2.2 cm cystic area within the right parietal subcortical white matter (series 2, image 24), mo st compatible with tumor resection cavity. Moderate right parietal subcortical vasogenic edema, markedly increased from comparison study. No hemorrhage or acute infarction. Ventricles: Normal. Bones/joints: Surgical changes of right parietal craniotomy. Sinuses: Minimal ethmoid sinus disease. Mastoid air cells: Fluid within the mastoid air cells bilaterally. Soft tissues: Unremarkable. Vasculature: Atherosclerotic vascular calcifications. IMPRESSION: 1. Moderate right parietal subcortical vasogenic edema, markedly increased from comparison study. Recommend further evaluation. 2. 2.2 cm cystic area within the right parietal subcortical white matter (series 2, image 24), most compatible with tumor resection cavity. Thank you for allowing us to participate in the care of your patient. Dictated and Authenticated by: Hernando Saini MD 06/22/2019 1:12 AM Central Time ([place] & [place]) FINAL REPORT CT HEAD NONCONTRAST 06/22/2019 PERFORMED ON EMERGENCY BASIS AT 0021 HOURS: HISTORY: Prior brain tumor removal. Altered mental status. Facial droop. COMPARISON: 05/13/2019. FINDINGS/IMPRESSION: Agree with the preliminary report by Dr. Saini from [facility]. Vasogenic edema within the right frontal lobe has increased since the previous exam. Intraaxial cystic area in the postoperative bed, 2.2 cm. Mild associated mass effect and effacement of the overlying sulci. Code QA Transcribed Date/Time: 06/22/2019 7:48 AM
--- NOTE | 2019-06-22 08:26 | MRI ---
Exam: BRAIN MRI WITH AND WITHOUT CONTRAST: HISTORY: Previous right frontal craniotomy. Right frontal lobe mass. COMPARISON: 04/27/2019. CORRELATION: Head CT 06/22/2019. FINDINGS: Gradient echo sequence: Hemosiderin deposition at the surgical cavity site. Additional hypointensity involving the medial left frontal lobe may be due to calcification. Calvarium: Appropriate T1 marrow signal intensity Midline brain parenchyma: Unremarkable Cerebrum:In the right frontal lobe, there is an intrinsic T1 hypointense, T2 and FLAIR hyperintense l esion measuring 2.4 x 3.2 cm. There is peripheral restricted diffusion, along with peripheral enhancement. Postsurgical cavity is suspected. Enhancement may represent residual tumor or scar tissu e. There is associated vasogenic edema occupying the majority of the left frontal lobe, near the vertex. There is mild sulcal effacement, without significant midline shift. There are scattered T2 an d FLAIR white matter hyperintensities which are likely due to chronic small vessel ischemic change. Ventricles: No evidence of hydrocephalus. Sinuses and mastoid air cells: Adequate aeration Diffusion: No evidence of acute infarct. Peripheral restricted diffusion at the operative site is non specific. Postcontrast images:Peripherally enhancing lesion as described above. There is also abnormal enhancem ent involving the overlying dura. Findings are presumed to be postoperative. IMPRESSION: Large postoperative cavity in the right frontal lobe. There is associated hemosiderin deposition and peripheral enhancement. Enhancement may represent scar tissue. The possibility of residual tumor cannot be excluded. Transcribed Date/Time: 06/22/2019 9:13 AM
[2019-06-22 08:33] LABS: Amphetamine Not Detected (NotDetected); Cocaine Metabolite Screen Not Detected (NotDetected); Medtox Reader # READER 1; Methamphetamine Not Detected (NotDetected); Opiate Screen Detected (NotDetected); Phencyclidine (PCP) Not Detected (NotDetected); THC/Cannabinoid Screen Not Detected (NotDetected)
[2019-06-22 08:34] LABS: Barbiturates Screen Not Detected (NotDetected); Benzodiazepine Screen Not Detected (NotDetected); Medtox Control Line Valid? VALID (VALID); Methadone Not Detected (NotDetected); Oxycodone Screen Detected (NotDetected); Tricyclic Screen Not Detected (NotDetected)
[2019-06-22] MEDS: Lorazepam 0.5 MG TAB PO SCH ×2 (08:48→21:14)
[2019-06-22] MEDS: Gabapentin 100 MG CAP PO SCH ×3 (08:48→21:15)
[2019-06-22] MEDS: Escitalopram Oxalate 10 mg Tablet PO SCH (08:48)
[2019-06-22] MEDS: Potassium Chloride 10 MEQ TAB PO SCH ×2 (08:49→16:34)
[2019-06-22] MEDS: Pantoprazole 40 MG VIAL IVP SCH (08:49)
[2019-06-22] MEDS: Sodium Chloride 0.9% (PF) 10 ML VIAL FS PRN (08:49)
[2019-06-22] MEDS: Furosemide 40 MG TAB PO SCH (08:49)
--- NOTE | 2019-06-22 09:37 | ULT ---
EXAM: Bilateral lower extremity venous duplex ultrasound with color and spectral Doppler imaging: HISTORY: Impaired mobility history of pulmonary embolism COMPARISON: None FINDINGS: Exam performed from the groin to the ankle including the visualized greater saphenous, common femoral , superficial femoral, profunda femoral, popliteal, trifurcation, and posterior tibial veins. There is phasic flow with normal compressibility and normal augmentation at all examined levels. No evidence for intraluminal thrombus. IMPRESSION: No evidence for deep venous thrombosis.
--- NOTE | 2019-06-22 09:45 | PRG ---
DATE OF SERVICE: 06/22/2019 Mr. Gunn is known to me as a 58-year-old man with metastatic lung adenocarcinoma. He had undergone radiosurgery x2 at an outside institution at the end of 2017. I subsequently followed this as he had moved to the [facility]. Unfortunately, despite the radiosurgery, he began to have radiologic progression with increasing edema and as such, on May 12, 2019, approximately 6 weeks ago, we did a right frontal stereotactic craniotomy for lesion resection. Postoperatively, we achieved excellent resection. Pathology consistent with radiation necrosis. No viable tumor cells and as such there was concern. Postoperatively, the patient did well with exception of significant weakness of the left upper extremity, which was much worse than before surgery given the location of the lesion. He was given prophylactic levetiracetam and presented early this morning with generalized seizure and likely Larry's paralysis. This morning on exam, he is alert, appropriate. He does have somewhat poorly healing wound with areas of scab, but there is no dehiscence to the point of seeing underlying skull. Unfortunately, his white blood cell count is 13, but his ESR and CRP are essentially normal. This argues against infection. However, I should note as well that his Keppra level is almost non-existent at 2, which is the lowest level of normal and he has come off his Decadron. Head CT shows increased vasogenic edema, which in my opinion makes me strongly favor potential deep infection until proven otherwise despite the biochemical labs looking satisfactory. MRI has just returned and does demonstrate enhancement around the resection cavity rim but also restricted diffusion. I am concerned about intracranial abscess and as such, I have recommended return to the operating room on an emergent basis and washout and removal of his bone flap with cultures and guided antibiotics. We have also re-load him with levetiracetam. He has had resolution in his seizure activity. I should note given that the patient looks so good, my hope is to get this under control before it gets worse as intracranial abscess is obviously associated with significant morbidity and mortality. He frankly looks really good again and has had no symptoms for intracranial infection and frankly aside from areas of scab of the wound and the MRI and CT appearance of increased edema, diffusion restriction, enhancement. These are the only things leading toward infection as his white blood cell count could be mildly elevated at 13 for a number of reasons, but nevertheless preferred to be more aggressive in this regard. DIAGNOSES: 1. Concern of intracranial abscess with history of metastatic tumors, radiation necrosis, resection. 2. Nicotine use. 3. Lung adenocarcinoma. 4. Prolonged steroid use. Job ID: [id number]
[2019-06-22] MEDS: Propranolol 40 MG TAB PO SCH (10:31)
[2019-06-22] MEDS: Piperacillin/Tazobactam 3.375 GM in Sodium Chloride 0.9% 100 ML IVPB SCH ×3 (10:56→23:10)
[2019-06-22] MEDS ORDERED: Fentanyl 250 MCG/5 ML VIAL ONE (11:36)
[2019-06-22] MEDS ORDERED: Sodium Chloride 0.9% 0 ML ONE (11:51)
[2019-06-22] MEDS ORDERED: Bacitracin Zinc Ointment 30 gm TUBE ONE (11:51)
[2019-06-22] MEDS ORDERED: Lidocaine 0.5%/Epinephrine 1:200,000 50 ml Vial ONE (11:51)
[2019-06-22] MEDS ORDERED: Thrombin 5000 UNITS/5 ML VIAL ONE (11:51)
[2019-06-22] MEDS ORDERED: Rocuronium Bromide 10 MG/ML (10ML VIAL) ONE (12:15)
[2019-06-22] MEDS ORDERED: Dexamethasone 20 MG/5 ML VIAL ONE (12:15)
[2019-06-22] MEDS ORDERED: PROPOFOL 200 MG/20 ML VIAL ONE (12:15)
[2019-06-22] MEDS ORDERED: Lidocaine 1% PF 5 ML VIAL ONE (12:15)
[2019-06-22] MEDS ORDERED: Hydrocortisone Sod Succ/PF 100 mg/2 ml Vial ONE (12:15)
[2019-06-22] MEDS ORDERED: Ondansetron PF 4 MG/2 ML Vial ONE (12:15)
[2019-06-22] MEDS ORDERED: PHENYLEPHRINE-NS 100 MCG/ML 10 ML SYRINGE ONE (12:15)
--- NOTE | 2019-06-22 12:50 | CON ---
DATE OF CONSULTATION: 06/22/2019 CONSULTING PHYSICIAN: [facility]. REASON FOR CONSULTATION: CCU management. HISTORY OF PRESENT ILLNESS: Mr. Gunn is a 58-year-old male, who has a history of metastatic adenocarcinoma from the lung. He came in last night with fairly abrupt left-sided weakness, particularly in the leg. He also had a possible seizure-type episode. He has been found to have a large cavitary mass in the right portion of his brain, is scheduled to go down for craniotomy later today. This may be a brain abscess, but could also be further evidence of malignancy. PAST MEDICAL HISTORY: 1. Metastatic adenocarcinoma from the lung. 2. Previous right frontal craniotomy for tumor resection. 3. Tobacco abuse. 4. Previous seizure. 5. Left-sided hemiparesis. ALLERGIES: FENTANYL. MEDICATIONS: Prior to admission; 1. Escitalopram 10 mg daily. 2. Dexamethasone 0.5 mg daily. 3. Colchicine 0.6 mg daily. 4. Oxycodone 15 mg every 4 hours as needed. 5. Lorazepam 0.5 mg b.i.d. 6. Gabapentin 100 mg t.i.d. 7. Furosemide 40 mg daily. 8. Propranolol 40 mg daily. 9. Lamictal 500 mg b.i.d. 10. Potassium chloride 10 mEq b.i.d. REVIEW OF SYSTEMS: Otherwise, negative. PHYSICAL EXAMINATION: VITAL SIGNS: Temperature 98, pulse 60, respirations 20, O2 saturation 96%, and blood pressure 125/79. GENERAL: He is awake and alert, and in no distress. NEUROLOGICAL: He has complete flaccidity of his left arm. He has 1/5 strength in his left leg. His right side has normal strength. HEENT: Otherwise, unremarkable. NECK: No adenopathy or JVD. CHEST: Clear. CARDIAC: S1 and S2. Regular. ABDOMEN: Soft. EXTREMITIES: No edema. IMAGING DATA: CT and MRI show a large right-sided brain mass. LABORATORY DATA: White blood cell count 13, hematocrit 54, and platelet count 158. Sodium 140, potassium 3.9, chloride 105, CO2 of 27, BUN 12, creatinine 0.7, and glucose 87. Troponin 0.1. BNP 578. ASSESSMENT: 1. Metastatic adenocarcinoma. 2. Brain abscess versus tumor recurrence with mass effect and acute left-sided weakness. 3. Tobacco abuse. PLAN: We will follow perioperatively with you. I am not sure there is much to do right now in the preoperative period besides pain management, which has already been ordered. I will leave decisions generally up to the patient's Neurosurgical Team. Job ID: [id number]
[2019-06-22] MEDS ORDERED: Sodium Chloride 0.9% 20 ML ONE (13:04)
--- NOTE | 2019-06-22 16:24 | CON ---
DATE OF TELEMEDICINE CONSULTATION: 06/22/2019 CHIEF COMPLAINT: Seizures. HISTORY OF PRESENT ILLNESS: The patient is a 58-year-old man with a known adenocarcinoma of his lung. He had metastatic lesion of the brain and had surgery on 05/12/2019 and was subsequently discharged home. The patient was brought back to the ER with a history of abrupt left-sided weakness and seizure-like episode. He had a CT of head and an MRI, which showed cavitary mass in the right frontal lobe of the brain and is scheduled for craniotomy later today. At this time, he was not noticed to have any seizures since admission to the ICU. The patient reports he takes Keppra for the past 2 years, he is on Neurontin. PREVIOUS MEDICAL HISTORY: History of adenocarcinoma of the lung, status post surgery for lung as well as right frontal lobe tumor, history of left-sided hemiparesis at baseline from the tumor. ALLERGIES: HE IS ALLERGIC TO FENTANYL. CURRENT MEDICATIONS: 1. Lexapro. 2. Dexamethasone. 3. Colchicine. 4. Oxycodone. 5. Lorazepam. 6. Gabapentin. 7. Furosemide. 8. Propranolol. 9. Keppra 500 b.i.d. 10. Potassium chloride. PREVIOUS SURGICAL HISTORY: Positive for lung surgery 2 to 3 years ago for his adenocarcinoma and brain surgery in April 2019 for the frontal lobe tumor. FAMILY HISTORY: He has 3 brothers, one of whom at 51 or 52 years of age from cancer. His mother is 74. She is in a usp. She has COPD and is a smoker. Father is 77, has dementia and possible Alzheimer's. SOCIAL HISTORY: He smokes daily. He smokes 1 pack a day for a number of years. No alcohol. He lives with his brother. REVIEW OF SYSTEMS: PULMONARY: Positive for shortness of breath and cough. GI: Negative for nausea, vomiting, or diarrhea. CARDIOVASCULAR: Negative for any chest pain or palpitations. NEUROLOGICAL: Positive for seizure. DERMATOLOGIC: Negative. HEMATOLOGICAL: Negative for bleeding diathesis or anemia. LABORATORY DATA: His current workup; his lab results are white count 13, hemoglobin 18.2, hematocrit 54.3, platelet count 158. Chemistry; sodium 140, potassium 3.9 , chloride 105, bicarb 27, BUN 12, creatinine 0.75, glucose 87, C-reactive protein 0.73, and troponin-I 1.11. BNP 578.2. Urinalysis is negative. Urine is positive for opiates and oxycodone, and his brain MRI shows large postop cavity in the right frontal lobe. There is associated hemosiderin deposition and peripheral enhancement, enhancement may represent scar tissue. There is possibility of residual tumor, that cannot be excluded. PHYSICAL EXAMINATION: VITAL SIGNS: Blood pressure was 125/79, pulse 61, temperature 98 at the time of our examination this morning. GENERAL APPEARANCE: Well-built, well-nourished man, who seems comfortable. CHEST: He has clear vesicular breathing. CARDIOVASCULAR: S1 and S2 heard. No murmurs. Carotids are clear. ABDOMEN: Soft. NEUROLOGICAL: Higher intellectual functions normal. Orientation to time, place , and person. Cranial nerves 2 through 12 normal. Normal extraocular movements. No facial asymmetry noted. Tongue midline. No atrophy noted. Motor; bulk normal, tone normal, strength 5/5 on the right side. On the left side, he has hypotonia with flaccid tone. Strength is 1/5 in the left upper extremity, left lower extremity strength is 3/5, right upper and lower extremity strength 5/5. Muscle groups tested are iliopsoas, hamstrings, quadriceps, ankle dorsiflexion, plantar flexion, deltoid, biceps, triceps, wrist extension and flexion, finger extension and flexion specifically in the left lower limb. His iliopsoas was 3/5; hamstrings, quadriceps, and ankle dorsiflexion were 2/5; ankle plantar flexion 3/5. Deep tendon reflexes 2+ throughout. Sensory normal to touch bilaterally. Cerebellar normal on the right side. He is unable to bend the left leg to perform cerebellar exam. IMPRESSION AND PLAN: The patient is a 58-year-old man with adenocarcinoma of the lung and right frontal lobe tumor, which resulted in left-sided hemiparesis. He was noted to have seizure-like event and weakness of the left arm and leg and was brought to the ER. The patient reports chronic left-sided weakness. At this time, primary concern is seizure. There is a structural lesion associated with this, which I believe is being addressed. He has pending surgery today. If needed, if he has any further seizures, we can increase his Keppra. Rest of the medications per Neurosurgery. I will check on him again tomorrow. Please call me if you have further questions. Job ID: [id number] [id number]
[2019-06-22] MEDS: levETIRAcetam 500 MG TAB PO SCH (16:33)
[2019-06-22] MEDS: Dexamethasone 4 MG in Sodium Chloride 0.9% 50 ML IVPB SCH (17:40)
--- NOTE | 2019-06-22 18:05 | CON ---
DATE OF CONSULTATION: 06/22/2019 PRIMARY CARE PROVIDER: Dr. Syed Maravilla. PRIMARY SERVICE ATTENDING: Ghulam Wise MD with Neurosurgery Service. REASON FOR CONSULT: General medical management. HISTORY OF PRESENT ILLNESS: This is a 58-year-old male, who presented to [facility] Emergency Department complaining of seizure-like activity involving the left side of his body. The patient's history is significant for metastatic lung adenocarcinoma, undergoing a radiosurgery x2, followed by a third surgery 05/12/2019 involving the right frontal lobe with stereotactic modality. The patient states he developed inability to use with left upper extremity in March 2019 and has never recovered the ability to use his left arm to any significance to-date. The patient states he noted seizure-like shaking on the left side of his body after being prescribed Keppra after his most recent surgery in April 2019. The patient states he has been compliant with his medication regimen and has been working with [facility], receiving occupational and physical therapy after a week-long stay at [facility]. The patient ambulates with the use of a rolling walker and had been doing fairly well, eventually ambulating without the use of assistive device. The patient states he lives in a ground level apartment in [place], [place] and receives support from his family, who live in the area. The patient states he has some headache as well as difficulty moving the left arm. But, denies any difficulty with speech, visual disturbance, fever, chills, or documented fever. The patient underwent general evaluation including CT imaging of the brain showing evidence of previous surgical resection with vasogenic edema apparently increased from previous brain imaging. The patient has underwent subsequent MRI imaging of the brain showing postoperative changes in the right frontal lobe consistent with prior surgical history. The patient received IV morphine sulfate, IV Keppra, intravenous normal saline, and acetaminophen. The patient was transferred to the critical care unit under the Neurosurgical Service for further evaluation. PAST MEDICAL HISTORY: 1. Tobacco abuse. 2. Metastatic lung adenocarcinoma. 3. Adenocarcinoma of the brain. 4. Anxiety/depression. 5. Hypertension. PAST SURGICAL HISTORY: 1. Status post brain tumor restriction x3. 2. Status post bowel resection. CURRENT MEDICATIONS: 1. Colchicine 0.6 mg p.o. daily. 2. Dexamethasone 0.5 mg p.o. daily. 3. Lexapro 10 mg p.o. daily. 4. Lasix 40 mg p.o. daily. 5. Gabapentin 100 mg p.o. t.i.d. 6. Keppra 500 mg p.o. b.i.d. 7. Lorazepam 0.5 mg p.o. b.i.d. 8. Oxycodone 15 mg p.o. q.4 hours p.r.n. breakthrough pain. 9. Oxycodone extended release 36 mg p.o. q.a.m. and 18 mg p.o. at bedtime. 10. Potassium chloride 10 mEq p.o. b.i.d. 11. Propranolol 40 mg p.o. daily. ALLERGIES: TO FENTANYL. FAMILY HISTORY: Positive for hypertension. SOCIAL HISTORY: Resides in [place], [place]. Smokes up to a pack of cigarettes daily. No alcohol or illicit drug use. Previously worked in the [employer]. Daughter is medical power of workers compensation attorney. REVIEW OF SYSTEMS: CONSTITUTIONAL: Negative for weight loss or gain, ability to conduct usual activities. SKIN: Negative for rash, itching. EYES: Negative for double vision, pain. ENT/MOUTH: Negative for nose bleeding, neck stiffness, pain, tenderness. CARDIOVASCULAR: Negative for palpitations, dyspnea on exertion, orthopnea. RESPIRATORY: Negative for shortness of breath, wheezing, cough, hemoptysis, fever or night sweats. GASTROINTESTINAL: Negative for poor appetite, abdominal pain, heartburn, nausea, vomiting, constipation, or diarrhea. GENITOURINARY: Negative for urgency, frequency, dysuria, nocturia. MUSCULOSKELETAL: Negative for pain, swelling. NEUROLOGIC/PSYCHIATRIC: Negative for anxiety, depression. ALLERGY/IMMUNOLOGIC: Negative for skin rash, bleeding tendency. Otherwise, negative except as stated per HPI. PHYSICAL EXAMINATION: VITAL SIGNS: On admission; blood pressure 149/100, pulse 56, respiratory rate 20, temperature 98.4 degrees Fahrenheit, and O2 saturation 95% on room air. GENERAL APPEARANCE: This is a 58-year-old male, alert and oriented x3, pleasant, responsive, in no acute distress. HEENT: Pupils are equal, round, and reactive to light and accommodation. Extraocular muscles are intact. No scleral icterus. No conjunctival injection. Nares patent. OP is clear. Nicotine staining to the teeth. NECK: Supple. No cervical adenopathy. No thyromegaly. No carotid bruits. No JVD appreciated. Cervical spine with full active and passive range of motion. No meningeal signs noted. CHEST: Diminished breath sounds in the bases bilaterally. CARDIOVASCULAR: S1 and S2 without noted murmur, rub, or gallop. ABDOMEN: Rounded, soft, nontender, and nondistended. Bowel sounds are positive in all 4 quadrants. There is no hepatosplenomegaly. No hepatosplenomegaly. No abdominal bruits no rebound or guarding appreciated. EXTREMITIES: Warm and dry with fair turgor. No clubbing, cyanosis, or asymmetric edema appreciated. Pulses palpable distally at the dorsalis pedis, posterior tibial, and popliteal arteries bilaterally. Capillary refill less than 2 seconds. NEUROLOGIC: Cranial nerves 2 through 12 are grossly intact. Left upper extremity with flaccid paralysis. Left lower extremity with 2/5 muscle strength. Intact sensation to light and sharp in all extremities. The patient now observed ambulatory during this exam. PERTINENT LAB AND X-RAY FINDINGS: Complete metabolic profile within normal limits. Troponin I ranged between 0.110 to 0.124. CRP 0.73. BNP 578. CBC showed a white blood cell count of 13, hemoglobin 18, hematocrit 54, platelet count 158 with 68% neutrophils. Urinalysis negative. Urine drug screen dated 06/22/2019, positive for opiates. CT of the brain without contrast dated 06/21/2019 showed moderate right parietal subcortical vasogenic edema increased from prior study. Portable chest x-ray dated 06/21/2019 showed chronic changes bilaterally. MRI of the brain dated 06/22/2019, showed large postoperative cavity in the right frontal lobe. Associated hemosiderin deposition and peripheral enhancement. Bilateral lower extremity venous Doppler study dated 06/22/2019 showed no evidence for DVT. ASSESSMENT AND PLAN: 1. Metastatic adenocarcinoma of the lung to the brain. The patient admitted under the Neurosurgical Service. Current plans are for return to the OR for craniotomy and exploration of previous surgical site. Initial concern for potential infectious process. Continue pain control as clinically indicated. 2. Metastatic lung adenocarcinoma. 3. Status post chemotherapy and radiation. Third treatment. Continue supportive management. Encourage tobacco use Clarence cessation. 4. Elevated troponin I. Appears demand ischemia of the myocardium, likely due to current presentation. Check 2D transthoracic echocardiogram for ejection fraction and wall motion abnormality. 5. Next tobacco abuse. We will offer smoking cessation resources prior to discharge. Yadielb q.4 hours p.r.n. 6. Seizure disorder. We will continue Keppra 500 mg p.o. b.i.d. Titrate Keppra dosing based on clinical response. 7. Prophylaxis. Sequential compression devices while in bed. Pepcid 20 mg p.o. b.i.d. PT and OT evaluation for functional assessment. 8. Code status is full. Surrogate medical decision maker is the patient's daughter. Thank you for the consult. We will continue to follow with Primary Service. Job ID: [id number]
--- NOTE | 2019-06-22 18:26 | CON ---
DATE OF CONSULTATION: 06/22/2019 REASON FOR CONSULTATION: Postop brain tumor resection and infection. HISTORY OF PRESENT ILLNESS: A 58-year-old history of lung cancer, undifferentiated, and he had undergone a resection of area of metastasis in the right frontal lobe area. This was found to be necrotic without viable cells. He developed some twitching of his left leg and he came to the emergency room. This was after a 30-day taper of Decadron. Had no visual changes. No sore throat, odynophagia, or dysphagia. Continued with headaches. No cough, sputum production, or chest pain. No dyspnea. No abdominal pain or diarrhea. No genitourinary symptoms. No joint symptoms. There were no wound issues noted. He had a brain MRI done on the day of the consultation, which demonstrated large postop cavity in the right frontal lobe with hemosiderin preop deposition, peripheral enhancement. The surgical report is not available, but reportedly purulent exudate was found within the lesion. This was sent for cultures. Currently, Mr. Gunn is obtunded. He is in the ICU. Does not follow commands. Does not interact with the examiner. No seizure activity. No incontinence. PAST MEDICAL HISTORY: Includes lung cancer with chemotherapy and then brain tumor removal in 2019 with a necrotic tumor found in the right frontal area, partial colon resection. ALLERGIES: NONE. MEDICATIONS: 1. Oxycodone. 2. Keppra. 3. Colchicine. 4. Lorazepam. 5. Potassium. 6. Gabapentin. 7. Furosemide. 8. Zofran. 9. Omeprazole. ALLERGIES: FENTANYL. PHYSICAL EXAMINATION: VITAL SIGNS: Temperature normal, BP 125/90, pulse 66, respirations 19, O2 saturation 96. GENERAL: The patient is obtunded, does not establish eye contact, does not answer questions or follow commands. Craniectomy site is covered by dressing. Peripheral IV access, and he is voiding in the urinal. NECK: No lymphadenopathy. HEENT: Ocular movements are conjugate. Pupils are reactive and symmetric. NECK: Supple. LUNGS: Symmetric, clear breath sounds. HEART: S1 and S2, regular rate without murmurs. No S3 or S4. ABDOMEN: Soft, not distended or tender. No ascites. No bladder distention. EXTREMITIES: I could not test his movements very well, but he seems to have movements in all 4 extremities. He is obtunded and cannot answer questions. LABORATORY DATA: White cell count 13,000, hemoglobin of 18, platelets 158 with normal differential. Chemistry was normal. Troponin was little bit high at 0.124. Serum total protein 5.9, albumin 3.6, globulin 2.3. Urinalysis with 4 to 6 rbc's. A swab of the substance in the tumor at the brain level with no organism seen, moderate wbc's. Culture results pending. ASSESSMENT AND PLAN: Metastatic lung cancer with a recent resection of lung metastasis to the brain with necrotic tumor found, now with cavitary lesion with concern for infection/abscess. We will wait for the final results of cultures and then determine protracted IV antimicrobial therapy administration for this lesion, seems like it turned into an abscess basically in the area of resection. Job ID: [id number]
[2019-06-22] MEDS: Cefepime 2 GM in Sodium Chloride 0.9% 100 ML IVPB SCH (21:15)
[2019-06-22] MEDS: Oxycodone Myristate [Xtampza Er] 36 MG PO SCH (21:22)
[2019-06-22] MEDS: OXYCODONE MYRISTATE 18 MG PO SCH (21:22)
[2019-06-22] MEDS: metroNIDAZOLE 500 MG in Premix Bag 1 BAG IVPB SCH (22:19)
[2019-06-23] MEDS: Dexamethasone 4 MG in Sodium Chloride 0.9% 50 ML IVPB SCH ×4 (00:20→17:58)
[2019-06-23] MEDS: levETIRAcetam 500 MG TAB PO SCH ×2 (04:02→16:02)
[2019-06-23] MEDS: Morphine 2 MG/ML SYRINGE SLOW IVP PRN ×3 (05:08→17:58)
[2019-06-23] MEDS: Piperacillin/Tazobactam 3.375 GM in Sodium Chloride 0.9% 100 ML IVPB SCH (05:10)
[2019-06-23] MEDS: metroNIDAZOLE 500 MG in Premix Bag 1 BAG IVPB SCH ×3 (06:39→22:12)
[2019-06-23] MEDS: Sodium Chloride 0.9% 1,000 ML IV SCH ×2 (08:05→17:58)
[2019-06-23] MEDS: Lorazepam 0.5 MG TAB PO SCH ×2 (08:08→20:26)
[2019-06-23] MEDS: Escitalopram Oxalate 10 mg Tablet PO SCH (08:08)
[2019-06-23] MEDS: Potassium Chloride 10 MEQ TAB PO SCH ×2 (08:08→16:02)
[2019-06-23] MEDS: Gabapentin 100 MG CAP PO SCH ×3 (08:08→20:18)
[2019-06-23] MEDS: Furosemide 40 MG TAB PO SCH (08:08)
[2019-06-23] MEDS: Cefepime 2 GM in Sodium Chloride 0.9% 100 ML IVPB SCH ×2 (08:08→20:27)
[2019-06-23] MEDS: Pantoprazole 40 MG VIAL IVP SCH (08:09)
[2019-06-23] MEDS: Sodium Chloride 0.9% (PF) 10 ML VIAL FS PRN (08:09)
[2019-06-23] MEDS: Oxycodone Myristate [Xtampza Er] 36 MG PO SCH (08:21)
[2019-06-23] MEDS: Propranolol 40 MG TAB PO SCH (08:21)
--- NOTE | 2019-06-23 09:57 | PRG ---
DATE OF SERVICE: 06/23/2019 Mr. Gunn is postoperative day 1 from intracranial wound washout culturing and all indicated procedures. The patient complains of headache, but is stable as what it was preoperatively. This has been chronic in nature and virtually unchanged. He has continued weakness into the left arm greater than left leg. He has dorsiflexion and plantar flexion weakness, but is antigravity, in fact appears to be able to lift his bed more with more strength today than he did yesterday. He does continue to have profound weakness into the left arm, though can move all the fingers. He does continue to have tone. He has had no seizure-like activity. We continued his Keppra 500 mg. I have started him on Lovenox tonight. His ultrasound was negative for DVT. We will continue with antibiotics at the discretion of Infectious Disease, and we will follow up on the culture. The patient will stay in the unit overnight and we will see how he does. I would like to continue his CONNER drain. Please call with any changes in patient's neurologic status. Job ID: [id number]
--- NOTE | 2019-06-23 10:11 | PRG ---
DATE OF SERVICE: 06/23/2019 SUBJECTIVE: Mr. Gunn is postoperative day 1 from evacuation of right intracerebral abscess, removal of bone flap. He states his headache is about the same as yesterday, although he does have more movement in his left arm than yesterday. He is able to not only tracely contract, but partial antigravity bend at the elbow. This is an improvement. He moves his left leg with mild weakness. His right side is intact. His drain output has been minimal, but we will continue broad-spectrum antibiotics and follow up on cultures. We will transfer to the floor and continue antiepileptic therapy. Job ID: [id number]
[2019-06-23] MEDS: oxyCODONE 5 MG TAB PO PRN ×2 (11:48→20:18)
[2019-06-23 12:05] LABS: #Lymphocytes 1.2 thou/uL (1.20-3.40); #Monocytes 0.6 thou/uL (0.11-0.59); #Neutrophils 13.1 thou/uL (1.40-6.50); %Eosinophils 0.3 % (0.0-10.0); %Lymphocytes 8.1 % (21.0-51.0); %Monocytes 3.8 % (0.0-10.0); %Neutrophils 87.7 % (42.0-75.0); Hemoglobin 17.3 g/dL (14.0-18.0); Mean Corpuscular HGB CONC 33.5 g/dL (32.0-36.0); Mean Corpuscular Hemoglobin 32.6 pg (27.0-31.0); Mean Corpuscular Volume 97.4 fL (78.0-98.0); Mean Platelet Volume 7.8 fL (7.4-10.4); Platelet Count 155 thou/uL (130-400); RBC Distribution Width 16.2 % (11.5-14.5); White Blood Cell (WBC) Count 14.9 thou/uL (4.8-10.8)
[2019-06-23 12:30] LABS: Anion Gap 10 mmol/L (10-20); BUN (Urea Nitrogen) 16 mg/dL (8.4-25.7); Calc. Creatinine Clearance 171 mL/min (70-130); Calcium 8.8 mg/dL (7.8-10.44); Carbon Dioxide 26 mmol/L (22-29); Chloride 102 mmol/L (98-107); Estimated GFR-MDRD Greater than 90; Glucose 177 mg/dL (70-105); Sodium 134 mmol/L (136-145)
--- NOTE | 2019-06-23 12:34 | OP ---
DATE OF PROCEDURE: 06/22/2019 LOCATION: OR 5. OUTSIDE REPAIRER SPECIAL: Tom Quiros PA-C PREPROCEDURE DIAGNOSIS: Concern of right rolandic brain abscess. POSTPROCEDURE DIAGNOSIS: Concern of right rolandic brain abscess. PROCEDURE PERFORMED: 1. Removal of brain abscess, a modifier 78 should be made as this was an unplanned return to the operating room. 2. A modifier 57 should be made as the surgery was done on the day I saw the patient. DESCRIPTION OF PROCEDURE: After informed consent was obtained from the patient, the patient was brought to the OR. Proper patient, pause, and identification were carried out. Sterile cleansing, preparation, and draping of the right craniotomy wound was done. This area was sterilely cleansed, prepared, and draped. Proper patient, pause, and identification were carried out. The wound was then opened. There was no sign of purulence. The bone flap was then removed. There was no sign of purulence. I then went into the brain cavity and there was sign of purulence. Cultures were sent for bacterial, aerobic, anaerobic, and fungal. Copious irrigation occurred. I have made sure that all the purulent material and abscess was evacuated. Local duraplasty was performed with autologous pericranium and DuraSeal was placed over this area. The bone flap again was removed in its entirety. The wound was then closed in anatomic layers over drain. The patient was then emerged from anesthesia. Job ID: [id number]
--- NOTE | 2019-06-23 15:56 | PRG ---
DATE OF SERVICE: 06/23/2019 SUBJECTIVE: Mr. Gunn appears to be doing well. Reviewing the notes. OBJECTIVE: VITAL SIGNS: He is afebrile. Heart rate is 57, blood pressure 119/79. Intake and outputs, positive 227. LUNGS: Clear. HEART: Regular rhythm. ABDOMEN: Soft and nontender. EXTREMITIES: Without edema. Brain fluid cultures growing a Staph species. IMPRESSION: Brain abscess, status post evacuation. He remains on broad antimicrobial coverage until cultures and sensitivities are finalized. He appears better than I expected, hearing how he presented. We will continue to follow with the other physicians caring for him. Job ID: [id number]
--- NOTE | 2019-06-23 19:36 | PDOC.HOSPP ---
- Subjective Subjective: f/u s/p repeat craniotomy for brain abscess in prior cavitary region of metastatic lung CA. Feels better overall and tolerating po intake. - Objective Vital Signs & Weight: Vital Signs (12 hours) Temp Pulse Pulse Pulse BP BP BP 06/23/19 16:00 98.9 F 06/23/19 14:00 99.3 F 06/23/19 10:50 60 57 L 152/108 H 152/114 H 06/23/19 10:45 60 61 57 L 152/108 H 144/96 H 147/96 H 06/23/19 08:00 97.7 F BP Pulse Ox 06/23/19 16:00 06/23/19 14:00 06/23/19 10:50 06/23/19 10:45 152/114 H 06/23/19 08:00 96 Weight Weight 251 lb 8 oz Most Recent Monitor Data Heart Rate from ECG 55 NIBP 131/88 NIBP BP-Mean 102 Respiration from ECG 19 SpO2 92 I&O: 06/22/19 06/23/19 06/24/19 06:59 06:59 06:59 Intake Total 75 2147 2521 Output Total 1920 2690 Balance 75 227 -169 Result Diagrams: 06/23/19 11:55 06/23/19 11:55 Additional Labs: Accuchecks 06/23/19 04:08 POC Glucose 147 H Microbiology 06/22/19 13:12 Brain - E swab Bacterial Culture - Preliminary 06/22/19 13:12 Brain - E swab Staphylococcus species 06/22/19 03:43 Urine voided Urine Culture - Preliminary NO GROWTH AT 24 HOURS 06/22/19 03:35 Venous blood - Right Hand Blood Culture - Preliminary Specimen has been received and culture in progress. No Growth to date. 06/22/19 03:33 Venous blood - Left Hand Blood Culture - Preliminary Specimen has been received and culture in progress. No Growth to date. Laboratory Tests 06/21/19 06/21/19 06/21/19 23:29 23:29 23:29 WBC 13.0 H Sodium 140 Troponin I 0.124 H B-Natriuretic Peptide 06/22/19 06/22/19 03:33 03:33 WBC Sodium Troponin I 0.110 H B-Natriuretic Peptide 578.2 H Radiology Reviewed by me: Yes (2D echo - EF 55%, mod LAE, diast dysfxn) EKG Reviewed by me: Yes (Tele - SR) ROS - Review of Systems All systems: All other ROS were reviewed and found negative. - Medication Medications: Active Medications Generic Name Dose Route Start Last Admin Trade Name Freq PRN Reason Stop Dose Admin Escitalopram Oxalate 10 mg 06/22/19 09:00 06/23/19 08:08 Lexapro PO 10 mg DAILY ADRIANA Administration Furosemide 40 mg 06/22/19 09:00 06/23/19 08:08 Lasix PO 40 mg DAILY ADRIANA Administration Gabapentin 100 mg 06/22/19 09:00 06/23/19 14:14 Neurontin PO 100 mg TID ADRIANA Administration Sodium Chloride 1,000 mls @ 75 mls/hr 06/22/19 03:15 06/23/19 17:58 Normal Saline 0.9% IV 1,000 mls .[id number] ADRIANA Administration Cefepime HCl 2 gm/ Sodium 100 mls @ 200 mls/hr 06/22/19 21:00 06/23/19 08:08 Chloride IVPB 100 mls Q12HR ADRIANA Administration Dexamethasone 4 mg/ Sodium 50.4 mls @ 100 mls/hr 06/22/19 18:00 06/23/19 17: 58 Chloride IVPB 50.4 mls Q6HR ADRIANA Administration Metronidazole 500 mg/ Device 100 mls @ 100 mls/hr 06/22/19 22:00 06/23/19 14: 14 IVPB 100 mls Q8HR ADRIANA Administration Vancomycin HCl 2 gm/ Sodium 500 mls @ 250 mls/hr 06/23/19 09:00 06/23/19 09: 46 Chloride IVPB 500 mls 0900,2100 ADRIANA Administration Levetiracetam 500 mg 06/22/19 16:00 06/23/19 16:02 Keppra PO 500 mg 0400,1600 ADRIANA Administration Lorazepam 0.5 mg 06/22/19 09:00 06/23/19 08:08 Ativan PO 0.5 mg BID ADRIANA Administration Morphine Sulfate 2 mg 06/22/19 03:07 06/23/19 17:58 Morphine SLOW IVP 2 mg Q2H PRN Administration Severe Pain (7-10) Oxycodone HCl 15 mg 06/22/19 03:20 06/23/19 11:48 Oxycodone Ir PO 15 mg Q4H PRN Administration BREAK THROUGH PAIN Pantoprazole Sodium 40 mg 06/22/19 09:00 06/23/19 08:09 Protonix IVP 40 mg DAILY ADRIANA Administration Oxycodone Myristate 0 each 06/22/19 21:00 06/22/19 21:22 [Xtampza Er] 18 Mg) PO Not Given QPM ADRIANA Oxycodone Myristate 0 each 06/22/19 09:00 06/23/19 08:21 [Xtampza Er] 36 Mg PO Not Given QAM ADRIANA Potassium Chloride 10 meq 06/22/19 08:00 06/23/19 16:02 Klor-Con 10 PO 10 meq BID-WM ADRIANA Administration Propranolol HCl 40 mg 06/22/19 09:00 06/23/19 08:21 Inderal PO 40 mg DAILY ADRIANA Administration Sodium Chloride 10 ml 06/22/19 03:21 06/23/19 08:09 Normal Saline Pf FS 10 ml PRN PRN Administration RECONSTITUTION - Exam NAD, awake alert Eye: PERRL, anicteric sclera ENT: normocephalic atraumatic, no oropharyngeal lesions Neck: supple, symmetric, no JVD, no Thyromegaly Heart: RRR, no murmur, no gallops, no rubs Respiratory: normal chest expansion, no tachypnea, wheezes Gastrointestinal: soft, non-tender, non-distended, normal bowel sounds, no palpable masses Extremities: no cyanosis, no clubbing, no edema Neurological: no new deficit, hemiplegia (L-hemiplegia) Psychiatric: normal behavior, A&O x 3 Hosp A/P (1) Metastatic adenocarcinoma to brain Code(s): C79.31 - SECONDARY MALIGNANT NEOPLASM OF BRAIN Status: Acute Plan: s/p resection with abscess in cavity, POD #1, continue Cefepime/Flagyl/ Vancomycin, continue Dexamethasone (2) Abscess, brain Code(s): G06.0 - INTRACRANIAL ABSCESS AND GRANULOMA Status: Acute Plan: Continue Cefepime/Flagyl/Vancomycin pending final cx results (3) Demand ischemia of myocardium Code(s): I24.8 - OTHER FORMS OF ACUTE ISCHEMIC HEART DISEASE Status: Acute Plan: No ACS, EF 55% and preserved on Echo, supportive mgmt (4) Tobacco abuse Code(s): Z72.0 - TOBACCO USE Status: Acute Plan: Smoking cessation resources (5) Seizure disorder Code(s): G40.909 - EPILEPSY, UNSP, NOT INTRACTABLE, WITHOUT STATUS EPILEPTICUS Status: Chronic Plan: Continue Keppra/Ativan - Plan continue antibiotics, PT/OT, social insurance analyst, DVT proph w/SCDs Stable currently Continue IV abx Continue IV Dexamethasone Continue Duonebs AM lab: BMP, CBC
[2019-06-23] MEDS: Senokot S 8.6-50 MG TAB PO SCH (20:18)
[2019-06-23] MEDS: Enoxaparin Sodium 40 MG/0.4 ML SYRINGE SC SCH (20:19)
[2019-06-23] MEDS: OXYCODONE MYRISTATE 18 MG PO SCH (20:35)
[2019-06-24] MEDS: oxyCODONE 5 MG TAB PO PRN ×2 (00:35→21:51)
[2019-06-24] MEDS: Dexamethasone 4 MG in Sodium Chloride 0.9% 50 ML IVPB SCH ×4 (00:35→18:23)
[2019-06-24] MEDS: levETIRAcetam 500 MG TAB PO SCH ×2 (04:01→18:23)
[2019-06-24] MEDS: metroNIDAZOLE 500 MG in Premix Bag 1 BAG IVPB SCH ×3 (05:18→21:45)
[2019-06-24] MEDS: Morphine 2 MG/ML SYRINGE SLOW IVP PRN ×3 (09:28→18:31)
[2019-06-24] MEDS: Pantoprazole 40 MG VIAL IVP SCH (09:35)
[2019-06-24] MEDS: Potassium Chloride 10 MEQ TAB PO SCH ×2 (09:37→18:22)
[2019-06-24] MEDS: Escitalopram Oxalate 10 mg Tablet PO SCH (09:37)
[2019-06-24] MEDS: Gabapentin 100 MG CAP PO SCH ×3 (09:37→20:45)
[2019-06-24] MEDS: Senokot S 8.6-50 MG TAB PO SCH ×2 (09:38→20:45)
[2019-06-24] MEDS: Furosemide 40 MG TAB PO SCH (09:38)
[2019-06-24] MEDS: Cefepime 2 GM in Sodium Chloride 0.9% 100 ML IVPB SCH ×2 (09:39→20:38)
[2019-06-24] MEDS: Propranolol 40 MG TAB PO SCH (09:39)
[2019-06-24] MEDS: Sodium Chloride 0.9% 1,000 ML IV SCH (09:42)
[2019-06-24 09:48] LABS: #Lymphocytes 1.1 thou/uL (1.20-3.40); #Monocytes 0.3 thou/uL (0.11-0.59); #Neutrophils 10.9 thou/uL (1.40-6.50); %Basophils 0.1 % (0.0-1.0); %Eosinophils 0.4 % (0.0-10.0); %Lymphocytes 9.2 % (21.0-51.0); %Monocytes 2.6 % (0.0-10.0); %Neutrophils 87.7 % (42.0-75.0); Hemoglobin 15.9 g/dL (14.0-18.0); Mean Corpuscular HGB CONC 32.7 g/dL (32.0-36.0); Mean Corpuscular Hemoglobin 31.3 pg (27.0-31.0); Mean Corpuscular Volume 95.7 fL (78.0-98.0); Platelet Count 152 thou/uL (130-400); RBC Distribution Width 15.9 % (11.5-14.5); Red Blood Cell (RBC) Count 5.09 mill/uL (4.70-6.10); White Blood Cell (WBC) Count 12.4 thou/uL (4.8-10.8)
[2019-06-24 10:08] LABS: Anion Gap 11 mmol/L (10-20); BUN (Urea Nitrogen) 18 mg/dL (8.4-25.7); Calc. Creatinine Clearance 188 mL/min (70-130); Calcium 8.7 mg/dL (7.8-10.44); Carbon Dioxide 29 mmol/L (22-29); Chloride 101 mmol/L (98-107); Estimated GFR-MDRD Greater than 90; Glucose 164 mg/dL (70-105); Potassium 4.1 mmol/L (3.5-5.1); Sodium 137 mmol/L (136-145)
[2019-06-24] MEDS: Lorazepam 0.5 MG TAB PO SCH ×2 (10:26→22:15)
[2019-06-24] MEDS: Oxycodone Myristate [Xtampza Er] 36 MG PO SCH (11:10)
--- NOTE | 2019-06-24 13:42 | PRG ---
DATE OF SERVICE: 06/24/2019 This is Tom Quiros PA-C dictating a report for Ghulam Wise MD. Mr. Gunn is postoperative day #2, having undergone intracranial wound washout. His microbiology points to staphylococcus species, but this has not yet been isolated. He remains on cefepime and vancomycin as well as Flagyl. I have ordered a PICC line to be placed, and at the direction of Infectious Disease, we will arrange his antibiotics. In regard to his strength, he has good strength again and then right arm and leg and actually improved strength and mobility into the left leg. He remains with profound left arm weakness, although it does appear that he may have a little bit more mobility, the flexibility and movement into the fingers on the left hand. He does continue to have tone. His CONNER drain output has been 15 mL, and we will leave this likely until he discharges. I have reminded him not to touch his incision. We will keep his incision covered. Hopefully, the patient will be ready for discharge tomorrow. The patient was up walking and has had a good appetite. We will determine the appropriate steroid taper and he will continue on his Keppra. His labs are stable today, and his Keppra level is at 13. Please call with any changes in the patient's neurologic status. Job ID: [id number]
--- NOTE | 2019-06-24 14:47 | PRG ---
DATE OF SERVICE: 06/24/2019 SUBJECTIVE: Mr. Gunn has no complaints. Microbiology was reviewed. The staphylococcal organism has still not been speciated or susceptibilities determined. His only complaint is rhinorrhea. OBJECTIVE: VITAL SIGNS: He is afebrile. Heart rate 54, respiratory rate and blood pressure 150/75. LUNGS: Clear. HEART: Regular rhythm. ABDOMEN: Soft. IMPRESSION: Status post evacuation of brain abscess, clinically stable . Job ID: [id number]
--- NOTE | 2019-06-24 17:03 | SPC ---
Exam: LEFT UPPER EXTREMITY PICC LINE PLACEMENT WITH ULTRASOUND GUIDANCE: HISTORY: Infection. COMPARISON: None. EXPOSURE: 0.2 minutes. 1916 milligray/cm2. FINDINGS: Successful left upper extremity PICC line placement with ultrasound guidance. Single-lumen 5 [place] c atheter terminates in the right atrium. 49 cm trim length. Catheter flushes and aspirates without difficulty. TECHNIQUE: Consent obtained to perform a left upper extremity PICC line placement with ultrasound guidance. Left arm was prepped and draped in a sterile fashion. 1% lidocaine, buffered with sodium bicarbonate was local anesthesia. Under ultrasound guidance, micropuncture needle was used to cannulate the basil ic vein. A 0.018 guidewire was advanced through the needle to the level of the right atrium. Under fluoroscopy, the wire was advanced into the inferior vena cava to document venous access. Wire was ritchie bsequently pulled back to the right atrium. Tract was dilated. A single lumen 5 [place] catheter was advanced over the wire. Wire was removed. Catheter flushes and aspirates without difficulty. 49 cm tr im length. IMPRESSION: Successful right upper extremity PICC line placement with ultrasound guidance. Transcribed Date/Time: 06/24/2019 5:50 PM
--- NOTE | 2019-06-24 18:07 | PDOC.HOSPP ---
- Subjective Encounter Date: 06/24/19 Encounter Time: 18:00 Subjective: f/u s/p intracranial washout with staph spp isolated on Vanc/Cefepime/Flagyl POD #2. Feels better overall and had RUE PICC line placed 06/24/19. - Objective Vital Signs & Weight: Vital Signs (12 hours) Temp Pulse Resp BP Pulse Ox 06/24/19 15:01 98.2 F 50 L 18 103/69 98 06/24/19 11:01 97.9 F 54 L 20 124/73 99 06/24/19 08:00 54 L 06/24/19 07:47 98.3 F 62 14 150/75 H 97 Weight Weight 251 lb 8 oz Most Recent Monitor Data Heart Rate from ECG 55 NIBP 131/88 NIBP BP-Mean 102 Respiration from ECG 19 SpO2 92 I&O: 06/23/19 06/24/19 06/25/19 06:59 06:59 06:59 Intake Total 2147 4521 Output Total 1920 3690 Balance 227 831 Result Diagrams: 06/24/19 09:35 06/24/19 09:35 Additional Labs: Microbiology 06/22/19 13:12 Brain - E swab Bacterial Culture - Preliminary 06/22/19 13:12 Brain - E swab Staphylococcus species 06/22/19 03:43 Urine voided Urine Culture - Preliminary NO GROWTH AT 24 HOURS 06/22/19 03:35 Venous blood - Right Hand Blood Culture - Preliminary Specimen has been received and culture in progress. No Growth to date. 06/22/19 03:33 Venous blood - Left Hand Blood Culture - Preliminary Specimen has been received and culture in progress. No Growth to date. Laboratory Tests 06/21/19 06/21/19 06/21/19 23:29 23:29 23:29 WBC 13.0 H Sodium 140 Troponin I 0.124 H B-Natriuretic Peptide 06/22/19 06/22/19 03:33 03:33 WBC Sodium Troponin I 0.110 H B-Natriuretic Peptide 578.2 H Radiology Reviewed by me: Yes (Echo - EF 55%, diast dysfxn) ROS - Medication Medications: Active Medications Generic Name Dose Route Start Last Admin Trade Name Freq PRN Reason Stop Dose Admin Enoxaparin Sodium 40 mg 06/23/19 21:00 06/23/19 20:19 Lovenox SC 40 mg 2100 ADRIANA Administration Escitalopram Oxalate 10 mg 06/22/19 09:00 06/24/19 09:37 Lexapro PO 10 mg DAILY ADRIANA Administration Furosemide 40 mg 06/22/19 09:00 06/24/19 09:38 Lasix PO 40 mg DAILY ADRIANA Administration Gabapentin 100 mg 06/22/19 09:00 06/24/19 09:37 Neurontin PO 100 mg TID ADRIANA Administration Sodium Chloride 1,000 mls @ 75 mls/hr 06/22/19 03:15 06/24/19 09:42 Normal Saline 0.9% IV Not Given .[id number] ADRIANA Cefepime HCl 2 gm/ Sodium 100 mls @ 200 mls/hr 06/22/19 21:00 06/24/19 09:39 Chloride IVPB 100 mls Q12HR ADRIANA Administration Dexamethasone 4 mg/ Sodium 50.4 mls @ 100 mls/hr 06/22/19 18:00 06/24/19 13: 14 Chloride IVPB 50.4 mls Q6HR ADRIANA Administration Metronidazole 500 mg/ Device 100 mls @ 100 mls/hr 06/22/19 22:00 06/24/19 14: 13 IVPB 100 mls Q8HR ADRIANA Administration Vancomycin HCl 2 gm/ Sodium 500 mls @ 250 mls/hr 06/23/19 09:00 06/24/19 10: 25 Chloride IVPB 500 mls 0900,2100 ADRIANA Administration Levetiracetam 500 mg 06/22/19 16:00 06/24/19 04:01 Keppra PO 500 mg 0400,1600 ADRIANA Administration Lorazepam 0.5 mg 06/22/19 09:00 06/24/19 10:26 Ativan PO 0.5 mg BID ADRIANA Administration Morphine Sulfate 2 mg 06/22/19 03:07 06/24/19 13:12 Morphine SLOW IVP 2 mg Q2H PRN Administration Severe Pain (7-10) Oxycodone HCl 15 mg 06/22/19 03:20 06/24/19 00:35 Oxycodone Ir PO 15 mg Q4H PRN Administration BREAK THROUGH PAIN Pantoprazole Sodium 40 mg 06/22/19 09:00 06/24/19 09:35 Protonix IVP 40 mg DAILY ADRIANA Administration Oxycodone Myristate 0 each 06/22/19 21:00 06/23/19 20:35 [Xtampza Er] 18 Mg) PO Not Given QPM ADRIANA Oxycodone Myristate 0 each 06/22/19 09:00 06/24/19 11:10 [Xtampza Er] 36 Mg PO 1 each QAM ADRIANA Administration Potassium Chloride 10 meq 06/22/19 08:00 06/24/19 09:37 Klor-Con 10 PO 10 meq BID-WM ADRIANA Administration Propranolol HCl 40 mg 06/22/19 09:00 06/24/19 09:39 Inderal PO 40 mg DAILY ADRIANA Administration Senna/Docusate Sodium 2 tab 06/23/19 21:00 06/24/19 09:38 Senokot S PO 2 tab BID ADRIANA Administration Sodium Chloride 10 ml 06/22/19 03:21 06/23/19 08:09 Normal Saline Pf FS 10 ml PRN PRN Administration RECONSTITUTION - Exam NAD, awake alert General - other findings: surgical dressing/CONNER drain in place on scalp Eye: PERRL, anicteric sclera ENT: normocephalic atraumatic, no oropharyngeal lesions Neck: supple, symmetric, no JVD, no thyromegaly Heart: RRR, no murmur, no gallops, no rubs Respiratory: CTAB, no wheezes, no rales, no ronchi Gastrointestinal: soft, non-tender, non-distended, normal bowel sounds, no palpable masses, no bruit Extremities: no cyanosis, no edema Skin: normal turgor Neurological: no new deficit Neurological - other findings: LUE flaccid, minimal movement of left fingers Musculoskeletal: normal tone Psychiatric: normal behavior, A&O x 3 Hosp A/P (1) Metastatic adenocarcinoma to brain Code(s): C79.31 - SECONDARY MALIGNANT NEOPLASM OF BRAIN Status: Acute Plan: s/p intracranial washout with staph spp isolated POD #2, continue IV abx, RUE PICC line placed, continue Dexamethasone (2) Abscess, brain Code(s): G06.0 - INTRACRANIAL ABSCESS AND GRANULOMA Status: Acute Plan: See #1 above (3) Demand ischemia of myocardium Code(s): I24.8 - OTHER FORMS OF ACUTE ISCHEMIC HEART DISEASE Status: Acute Plan: No ACS, supportive mgmt (4) Tobacco abuse Code(s): Z72.0 - TOBACCO USE Status: Acute Plan: Tobacco cessation resources (5) Seizure disorder Code(s): G40.909 - EPILEPSY, UNSP, NOT INTRACTABLE, WITHOUT STATUS EPILEPTICUS Status: Chronic Plan: Continue Keppra - Plan continue antibiotics, PT/OT, social work program coordinator, DVT proph w/SCDs Stable currently Continue IV abx with plans for outpt coverage Pain control as clinically indicated Continue Kejavier CM for coordination of outpt IV abx administration
[2019-06-24 20:37] LABS: Vancomycin, Trough 18.1 ug/mL
[2019-06-24] MEDS: Enoxaparin Sodium 40 MG/0.4 ML SYRINGE SC SCH (20:44)
[2019-06-24] MEDS: OXYCODONE MYRISTATE 18 MG PO SCH (21:56)
[2019-06-25] MEDS: Sodium Chloride 0.9% 1,000 ML IV SCH ×3 (00:09→14:51)
[2019-06-25] MEDS: Dexamethasone 4 MG in Sodium Chloride 0.9% 50 ML IVPB SCH ×4 (00:52→17:29)
[2019-06-25] MEDS: levETIRAcetam 500 MG TAB PO SCH ×2 (03:57→16:39)
[2019-06-25] MEDS: metroNIDAZOLE 500 MG in Premix Bag 1 BAG IVPB SCH (06:21)
[2019-06-25] MEDS: HYDROcodone/Acetaminophen 5/325 mg Tablet PO PRN ×3 (08:28→16:44)
[2019-06-25] MEDS: Propranolol 40 MG TAB PO SCH (08:30)
[2019-06-25] MEDS: Escitalopram Oxalate 10 mg Tablet PO SCH (08:30)
[2019-06-25] MEDS: Furosemide 40 MG TAB PO SCH (08:31)
[2019-06-25] MEDS: Potassium Chloride 10 MEQ TAB PO SCH ×2 (08:31→16:44)
[2019-06-25] MEDS: Senokot S 8.6-50 MG TAB PO SCH ×2 (08:31→21:38)
[2019-06-25] MEDS: Cefepime 2 GM in Sodium Chloride 0.9% 100 ML IVPB SCH (08:31)
[2019-06-25] MEDS: Gabapentin 100 MG CAP PO SCH ×3 (08:31→21:38)
[2019-06-25] MEDS: Pantoprazole 40 MG VIAL IVP SCH (08:43)
[2019-06-25] MEDS: Lorazepam 0.5 MG TAB PO SCH ×2 (09:43→21:59)
[2019-06-25] MEDS: Oxycodone Myristate [Xtampza Er] 36 MG PO SCH (11:06)
--- NOTE | 2019-06-25 13:36 | PRG ---
DATE OF SERVICE: 06/25/2019 SUBJECTIVE: Yayo Gunn has no new complaints. Reviewing microbiology, the organism was Staph epidermidis, which is always oxacillin resistant. He continues with IV antimicrobial therapy. OBJECTIVE: LUNGS: Clear. HEART: Regular rhythm. ABDOMEN: Soft. IMPRESSION: 1. Staph epidermidis, brain abscess, currently being treated with vancomycin. 2. History of lung cancer, status post resection of brain metastasis. PLAN: Continue antimicrobial therapy. Job ID: [id number]
[2019-06-25] MEDS: Ipratropium Bromide 0.06% Nasal Inhaler 15ml NASAL SCH ×2 (14:52→23:33)
--- NOTE | 2019-06-25 17:02 | PDOC.HOSPP ---
- Subjective Encounter Date: 06/25/19 Encounter Time: 09:30 Subjective: Patient seen and examined for med mngt. No new focal deficits or fever. No other complaints. No overnight events - Objective Vital Signs & Weight: Vital Signs (12 hours) Temp Pulse Resp BP BP Pulse Ox 06/25/19 15:23 98.4 F 50 L 16 126/76 96 06/25/19 09:52 60 152/96 H 06/25/19 08:21 98.1 F 60 18 149/103 H 92 L 06/25/19 08:00 60 L Weight Weight 251 lb 8 oz Most Recent Monitor Data Heart Rate from ECG 55 NIBP 131/88 NIBP BP-Mean 102 Respiration from ECG 19 SpO2 92 I&O: 06/24/19 06/25/19 06/26/19 06:59 06:59 06:59 Intake Total 4521 840 Output Total 3690 605 10 Balance 831 235 -10 Result Diagrams: 06/24/19 09:35 06/24/19 09:35 Additional Labs: Microbiology 06/22/19 03:43 Urine voided Urine Culture - Final NO GROWTH AT 48 HOURS 06/22/19 13:12 Brain - E swab Bacterial Culture - Preliminary 06/22/19 13:12 Brain - E swab Anaerobic Culture - Preliminary Staphylococcus epidermidis 06/22/19 03:35 Venous blood - Right Hand Blood Culture - Preliminary NO GROWTH AT 48 HOURS 06/22/19 03:33 Venous blood - Left Hand Blood Culture - Preliminary NO GROWTH AT 48 HOURS ROS - Review of Systems Respiratory: denies: cough, dry, shortness of breath, hemoptysis, SOB with excertion, pleuritic pain, sputum, wheezing, other Cardiovascular: denies: chest pain, palpitations, orthopnea, paroxysmal noc. dyspnea, edema, light headedness, other - Medication Medications: Active Medications Generic Name Dose Route Start Last Admin Trade Name Freq PRN Reason Stop Dose Admin Hydrocodone Bitart/Acetaminophen 1 tab 06/22/19 03:01 06/25/19 16:44 [place] 5/325 PO 1 tab Q4H PRN Administration Moderate Pain (4-6) Enoxaparin Sodium 40 mg 06/23/19 21:00 06/24/19 20:44 Lovenox SC 40 mg 2100 ADRIANA Administration Escitalopram Oxalate 10 mg 06/22/19 09:00 06/25/19 08:30 Lexapro PO 10 mg DAILY ADRIANA Administration Furosemide 40 mg 06/22/19 09:00 06/25/19 08:31 Lasix PO 40 mg DAILY ADRIANA Administration Gabapentin 100 mg 06/22/19 09:00 06/25/19 14:49 Neurontin PO 100 mg TID ADRIANA Administration Hydralazine HCl 10 mg 06/22/19 03:16 06/25/19 09:52 Apresoline SLOW IVP 10 mg Q15MIN PRN Administration Sbp Greater Than 150 Sodium Chloride 1,000 mls @ 75 mls/hr 06/22/19 03:15 06/25/19 14:51 Normal Saline 0.9% IV Not Given .[id number] ADRIANA Dexamethasone 4 mg/ Sodium 50.4 mls @ 100 mls/hr 06/22/19 18:00 06/25/19 12: 57 Chloride IVPB 50.4 mls Q6HR ADRIANA Administration Vancomycin HCl 2 gm/ Sodium 500 mls @ 250 mls/hr 06/23/19 09:00 06/25/19 08: 28 Chloride IVPB 500 mls 0900,2100 ADRIANA Administration Ipratropium [place] 0 ml 06/24/19 21:00 06/25/19 14:52 Atrovent 0.06% Nasal Inhaler NASAL Not Given BID ADRIANA Levetiracetam 500 mg 06/22/19 16:00 06/25/19 16:39 Keppra PO 500 mg 0400,1600 ADRIANA Administration Lorazepam 0.5 mg 06/22/19 09:00 06/25/19 09:43 Ativan PO 0.5 mg BID ADRIANA Administration Morphine Sulfate 2 mg 06/22/19 03:07 06/24/19 18:31 Morphine SLOW IVP 2 mg Q2H PRN Administration Severe Pain (7-10) Oxycodone HCl 15 mg 06/22/19 03:20 06/24/19 21:51 Oxycodone Ir PO 15 mg Q4H PRN Administration BREAK THROUGH PAIN Pantoprazole Sodium 40 mg 06/22/19 09:00 06/25/19 08:43 Protonix IVP 40 mg DAILY ADRIANA Administration Oxycodone Myristate 0 each 06/22/19 21:00 06/24/19 21:56 [Xtampza Er] 18 Mg) PO Not Given QPM ADRIANA Oxycodone Myristate 0 each 06/22/19 09:00 06/25/19 11:06 [Xtampza Er] 36 Mg PO 1 each QAM ADRIANA Administration Potassium Chloride 10 meq 06/22/19 08:00 06/25/19 16:44 Klor-Con 10 PO 10 meq BID-WM ADRIANA Administration Propranolol HCl 40 mg 06/22/19 09:00 06/25/19 08:30 Inderal PO 40 mg DAILY ADRIANA Administration Senna/Docusate Sodium 2 tab 06/23/19 21:00 06/25/19 08:31 Senokot S PO 2 tab BID ADRIANA Administration Sodium Chloride 10 ml 06/22/19 03:21 06/23/19 08:09 Normal Saline Pf FS 10 ml PRN PRN Administration RECONSTITUTION - Exam NAD Neck: supple, no JVD Heart: RRR, no gallops, no rubs Respiratory: CTAB, no wheezes, no ronchi Gastrointestinal: soft, non-tender, non-distended, normal bowel sounds Extremities: no edema Hosp A/P (1) Abscess, brain Code(s): G06.0 - INTRACRANIAL ABSCESS AND GRANULOMA Status: Acute (2) Type 2 myocardial infarction Code(s): I21.A1 - MYOCARDIAL INFARCTION TYPE 2 (3) Tobacco abuse Code(s): Z72.0 - TOBACCO USE (4) Seizure disorder Code(s): G40.909 - EPILEPSY, UNSP, NOT INTRACTABLE, WITHOUT STATUS EPILEPTICUS (5) Obesity (BMI 30.0-34.9) Code(s): E66.9 - OBESITY, UNSPECIFIED (6) Other issues per previous notes - Plan PT/OT, DVT proph w/lovenox HHC setup PICC line placed Await outpt IV Atbx setup DC IVF On Steroids per NSG Change PPI to PO Cont Keppra Cont other meds as above
--- NOTE | 2019-06-25 17:32 | PRG ---
DATE OF SERVICE: 06/25/2019 This is Tom Quiros PA-C dictating a report for Ghulam Wise MD. SUBJECTIVE: Mr. Gunn is postoperative day #3, having undergone right frontal intracranial wound washout. Final culture is back, and it is consistent with Staph epidermidis. The patient does have a PICC line placed in the left arm. He will, as per the direction of Infectious Disease, need 2 g of vancomycin every 12 hours until August 22. Home health nursing will help collect continued labs for the patient. I have provided a taper of Decadron as well as continued Keppra to prevent any seizure-like activity. In regard to his neurologic status, the patient is awake, alert, and appropriate. He has good strength in the right arm and leg and really with good strength in the left leg enough that he is walking the halls with physical therapy. He continues with weakness into the left arm and hand though, appears to have some more movement into the fingers on the left. His drain was removed, and he tolerated this well. Our goal is to get him home today. However, I have just recently discussed with Case Management that we are waiting on insurance approval. If so, he will likely go home tomorrow. I have also attempted to contact the patient's daughter and left a message for her. Please call with any changes in the patient's neurologic status. Otherwise, we will plan to send the patient home with home health tomorrow. Job ID: [id number]
[2019-06-25] MEDS: Enoxaparin Sodium 40 MG/0.4 ML SYRINGE SC SCH (21:38)
[2019-06-25] MEDS: OXYCODONE MYRISTATE 18 MG PO SCH (21:46)
[2019-06-25] MEDS: Lorazepam 1 MG TAB PO SCH (21:56)
[2019-06-26] MEDS: HYDROcodone/Acetaminophen 5/325 mg Tablet PO PRN (00:37)
[2019-06-26] MEDS: Dexamethasone 4 MG in Sodium Chloride 0.9% 50 ML IVPB SCH ×3 (00:39→13:14)
[2019-06-26] MEDS: levETIRAcetam 500 MG TAB PO SCH (02:54)
[2019-06-26] MEDS ORDERED: Heparin 1,000 UNITS/ML VIAL ONE (09:11)
[2019-06-26] MEDS: Gabapentin 100 MG CAP PO SCH (09:51)
[2019-06-26] MEDS: Potassium Chloride 10 MEQ TAB PO SCH (09:51)
[2019-06-26] MEDS: Escitalopram Oxalate 10 mg Tablet PO SCH (09:51)
[2019-06-26] MEDS: Lorazepam 1 MG TAB PO SCH (09:51)
[2019-06-26] MEDS: Propranolol 40 MG TAB PO SCH (09:51)
[2019-06-26] MEDS: Senokot S 8.6-50 MG TAB PO SCH (09:51)
[2019-06-26] MEDS: Furosemide 40 MG TAB PO SCH (09:51)
[2019-06-26] MEDS: Oxycodone Myristate [Xtampza Er] 36 MG PO SCH (09:52)
[2019-06-26 12:08] VITALS: BP 123/79; TEMP 98.4
--- NOTE | 2019-06-26 15:45 | PDOC.HOSPP ---
- Subjective Encounter Date: 06/26/19 Encounter Time: 08:30 Subjective: Patient seen and examined for med mngt. Headache same. No CP/SOB or focal deficits. No new complaints. No overnight events - Objective Vital Signs & Weight: Vital Signs (12 hours) Temp Pulse Resp BP Pulse Ox 06/26/19 12:05 98.4 F 55 L 18 123/79 93 L 06/26/19 07:25 98.1 F 55 L 20 145/94 H 98 06/26/19 03:58 97.8 F 53 L 15 148/89 H 97 Weight Weight 251 lb 8 oz Most Recent Monitor Data Heart Rate from ECG 55 NIBP 131/88 NIBP BP-Mean 102 Respiration from ECG 19 SpO2 92 I&O: 06/25/19 06/26/19 06/27/19 06:59 06:59 06:59 Intake Total 840 1040 Output Total 605 1380 Balance 235 -340 Result Diagrams: 06/24/19 09:35 06/24/19 09:35 ROS - Review of Systems Respiratory: denies: cough, dry, shortness of breath, hemoptysis, SOB with excertion, pleuritic pain, sputum, wheezing, other Cardiovascular: denies: chest pain, palpitations, orthopnea, paroxysmal noc. dyspnea, edema, light headedness, other - Medication Medications: Active Medications Generic Name Dose Route Start Last Admin Trade Name Freq PRN Reason Stop Dose Admin Hydrocodone Bitart/Acetaminophen 1 tab 06/22/19 03:01 06/26/19 00:37 [place] 5/325 PO 1 tab Q4H PRN Administration Moderate Pain (4-6) Enoxaparin Sodium 40 mg 06/23/19 21:00 06/25/19 21:38 Lovenox SC 40 mg 2100 ADRIANA Administration Escitalopram Oxalate 10 mg 06/22/19 09:00 06/26/19 09:51 Lexapro PO 10 mg DAILY ADRIANA Administration Furosemide 40 mg 06/22/19 09:00 06/26/19 09:51 Lasix PO Not Given DAILY ADRIANA Gabapentin 100 mg 06/22/19 09:00 06/26/19 09:51 Neurontin PO 100 mg TID ADRIANA Administration Hydralazine HCl 10 mg 06/22/19 03:16 06/25/19 09:52 Apresoline SLOW IVP 10 mg Q15MIN PRN Administration Sbp Greater Than 150 Dexamethasone 4 mg/ Sodium 50.4 mls @ 100 mls/hr 06/22/19 18:00 06/26/19 13: 14 Chloride IVPB 50.4 mls Q6HR ADRIANA Administration Vancomycin HCl 2 gm/ Sodium 500 mls @ 250 mls/hr 06/23/19 09:00 06/26/19 09: 50 Chloride IVPB 500 mls 0900,2100 ADRIANA Administration Ipratropium [place] 0 ml 06/24/19 21:00 06/25/19 23:33 Atrovent 0.06% Nasal Inhaler NASAL Not Given BID ADRIANA Levetiracetam 500 mg 06/22/19 16:00 06/26/19 02:54 Keppra PO 500 mg 0400,1600 ADRIANA Administration Lorazepam 0.5 mg 06/25/19 21:00 06/26/19 09:51 Ativan PO 0.5 mg BID ADRIANA Administration Morphine Sulfate 2 mg 06/22/19 03:07 06/24/19 18:31 Morphine SLOW IVP 2 mg Q2H PRN Administration Severe Pain (7-10) Oxycodone HCl 15 mg 06/22/19 03:20 06/24/19 21:51 Oxycodone Ir PO 15 mg Q4H PRN Administration BREAK THROUGH PAIN Pantoprazole Sodium 40 mg 06/26/19 09:00 06/26/19 09:51 Protonix PO 40 mg DAILY ADRIANA Administration Oxycodone Myristate 0 each 06/22/19 21:00 06/25/19 21:46 [Xtampza Er] 18 Mg) PO 1 each QPM ADRIANA Administration Oxycodone Myristate 0 each 06/22/19 09:00 06/26/19 09:52 [Xtampza Er] 36 Mg PO 1 each QAM ADRIANA Administration Potassium Chloride 10 meq 06/22/19 08:00 06/26/19 09:51 Klor-Con 10 PO 10 meq BID-WM ADRIANA Administration Propranolol HCl 40 mg 06/22/19 09:00 06/26/19 09:51 Inderal PO 40 mg DAILY ADRIANA Administration Senna/Docusate Sodium 2 tab 06/23/19 21:00 06/26/19 09:51 Senokot S PO Not Given BID ADRIANA Sodium Chloride 10 ml 06/22/19 03:21 06/23/19 08:09 Normal Saline Pf FS 10 ml PRN PRN Administration RECONSTITUTION - Exam NAD Neck: supple, no JVD Heart: RRR, no gallops Respiratory: CTAB, no wheezes, no ronchi Gastrointestinal: soft, normal bowel sounds Hosp A/P (1) Abscess, brain Code(s): G06.0 - INTRACRANIAL ABSCESS AND GRANULOMA Status: Acute (2) Type 2 myocardial infarction Code(s): I21.A1 - MYOCARDIAL INFARCTION TYPE 2 (3) Tobacco abuse Code(s): Z72.0 - TOBACCO USE (4) Seizure disorder Code(s): G40.909 - EPILEPSY, UNSP, NOT INTRACTABLE, WITHOUT STATUS EPILEPTICUS (5) Obesity (BMI 30.0-34.9) Code(s): E66.9 - OBESITY, UNSPECIFIED (6) Other issues per previous notes - Plan Steroids taper per NSG Cont PPI - script sent to [facility] outpt IV Atbx setup
--- NOTE | 2019-06-26 17:02 | PRG ---
DATE OF SERVICE: 06/26/2019 Mr. Gunn is 5 days out from evacuation of intracerebral abscess. His final cultures have demonstrated oxacillin-resistant Staphylococcus epidermidis, and as such, we will send him home on vancomycin. We will arrange for outpatient followup with both ourselves and Infectious Disease. Job ID: [id number]
--- NOTE | 2019-06-27 09:48 | PQF ---
[facility] Dir Crystal Reports FLORINDA June SHU TOLBERT MD [id number] CLINICAL DOCUMENTATION CLARIFICATION FORM: POST DISCHARGE Addendum to original discharge summary date: ____ Late entry note date: __ DATE: 06/27/2019 ATTN:SHU TOLBERT MD Please exercise your independent, professional judgment in responding to the clarification form. Clinical indicators are provided on the bottom of this form for your review Please check appropriate box(s): [ ] Brain Abscess due to Previous procedure [ ] Brain Abscess not due to Previous procedure [ ] Other diagnosis [ ] Unable to determine CLINICAL INDICATORS - SIGNS / SYMPTOMS / LABS -Abscess brain- Hospital progress note, 06/26, Kaylah Flood -pathology consistent with tumor necrosis-H&P, 06/25, Chula Santos PA-C -Brain abscess versus tumor recurrence with mass effect and acute left sided weakness-Consult report, 06/27, Michael Sandoval MD -Concern of right rolandic brain abscess- OP report, 06/22, Frandy Parmar MD -s/p repeat craniotomy for brain abscess in prior cavity region of metastatic lung CA-Hospital PN, 06/23, Addy Akhtar DO RISK FACTORS -Status post Frontal craniotomy on 05/12/2019-H&P, 06/25, Chual Santos PA-C -Metastatic adenocarcinoma to brain--Hospital PN, 06/23, Addy Akhtar DO -Seizure disorder--Hospital PN, 06/23, dAdy Akhtar DO TREATMENT: -Evacuation of intracerebral abscess-Progress note, 06/26, Frandy Parmar MD -Zosyn IV-MAR, 06/22 (This form is maintained as a part of the permanent medical record) 2014 [employer]. All Rights Reserved Carloz Putnam [not provided] [not provided] MTDD
[2019-06-28 23:07] LABS: Fungus Stain Final report (.)
== END 2019-06-26 16:38 | disposition home or self-care (01) | DRG 23 ==
LOC: ERS 23:00 → CCU 06-22 03:01 → SURG A 06-23 19:49
PROVIDERS: ADMIT Surgery; ATTEND Surgery
PROC: 00900ZZ Drainage of Brain, Open Approach (ICD-10-PCS; principal; 2019-06-22)
PROC: 02HV33Z Insertion of Infusion Device into Superior Vena Cava, Percutaneous Approach (ICD-10-PCS; 2019-06-24)
PROC: B548ZZA Ultrasonography of Superior Vena Cava, Guidance (ICD-10-PCS; 2019-06-24)
DX: G06.0 Intracranial abscess and granuloma (principal); G93.6 Cerebral edema; I21.A1 Myocardial infarction type 2; C78.02 Secondary malignant neoplasm of left lung; C79.31 Secondary malignant neoplasm of brain; G81.94 Hemiplegia, unspecified affecting left nondominant side; Z51.5 Encounter for palliative care; R29.810 Facial weakness; F41.9 Anxiety disorder, unspecified; F32.9 Major depressive disorder, single episode, unspecified; F17.210 Nicotine dependence, cigarettes, uncomplicated; I45.10 Unspecified right bundle-branch block; I10 Essential (primary) hypertension; G83.84 Todd's paralysis (postepileptic); G40.909 Epilepsy, unspecified, not intractable, without status epilepticus; E66.9 Obesity, unspecified; Z68.32 Body mass index [BMI] 32.0-32.9, adult
CPT/HCPCS: 36415; 36416; 36569; 70450; 70553; 71045; 80048; 80053; 80177; 80202; 80306; 81003; 81015; 82553; 83880; 84484; 85025; 85652; 86140; 87040; 87070; 87077; 87086; 87102; 87186; 87205; 87206; 93005; 93306; 93970; 96365; 96375; 96376; C1751; C9113; J0360; J0692; J1100; J1644; J1650; J1720; J1953; J2001; J2270; J2405; J2543; J2704; J3010; J3370; J3490; J7050

== ENCOUNTER 2019-07-21 09:38 | Emergency (ER) | payer MEDICARE, OTHER ==
--- NOTE | 2019-07-21 10:07 | RAD ---
XR Foot Lt 3 View STANDARD HISTORY: Injury, left foot pain FINDINGS: No fracture or dislocation is identified. A plantar calcaneal spur is present.
--- NOTE | 2019-07-21 10:10 | RAD ---
LEFT ANKLE 3 VIEWS: Date: 07/21/19 INDICATION: Fall, injury, pain. FINDINGS: Mortise is intact. No fracture or dislocation identified. IMPRESSION: No acute fracture or dislocation of the left ankle is identified. POS: TPC
--- NOTE | 2019-07-21 11:47 | CT ---
CT BRAIN WITHOUT CONTRAST: Date: 07/21/19 HISTORY: Brain surgery 3 weeks ago. Weakness. FINDINGS: Comparison made with exam of 06/22/19. Postop changes in the right frontal region are again seen. There has been interval improvement withou t complete resolution of the vasogenic edema in the right frontal lobe. No new acute infarct, hemorrh age, or midline shift is seen. IMPRESSION: No evidence of acute process. POS: NATY
--- NOTE | 2019-07-22 07:41 | CON ---
DATE OF CONSULTATION: 07/21/2019 This is Tom Quiros PA-C dictating a report for Ghulam Wise MD. A 50-minute initial patient evaluation, of which, greater than 50% of the exam was spent in counseling and coordinating the patient's care, and remainder of the exam was spent in review of the patient's medical records and formulation of treatment plan. CHIEF COMPLAINT: Left-sided weakness with left ankle sprain. HISTORY OF PRESENT ILLNESS: Mr. Gunn is well known to our team as he previously underwent right frontal cranial wound exploration, found to be consistent with Staphylococcus epidermidis. He has been on PICC line with antibiotics at the direction of Dr. Schofield. He has also been continuing to take his Keppra. He has been walking with a walker regaining some strength into the left arm and leg. He had baseline weakness. Apparently, he felt as though his left ankle rolled under him, and this prompted him to present to the emergency room due to significant left ankle pain. X-ray was done, that apparently is negative for fracture, only left ankle sprain. The patient states he does not have much of a headache. He has had no drainage from his incision or noticeable fever or chills. He states he felt as though maybe he was slightly improving, but otherwise is discouraged at his continued weakness. Review of the patient's head CT compared to 06/22/2019, notes improvement in the surrounding vasogenic edema that was present preoperatively without any midline shift. PHYSICAL EXAMINATION: The patient is awake, alert, and appropriate. GCS is 15. He has good strength in the right arm and leg and baseline moderate weakness into the left arm. He has mild weakness into the left leg and is unable to dorsiflex or plantarflex given his ankle pain and bruising on the left. Otherwise, he has decent strength in the iliopsoas, quadriceps, and hamstring. He has intact sensation to light touch throughout. He is able to flex his fingers and move the trapezius and some deltoid strength, but otherwise has weakness into the left arm. His incision is healing well without scabbing, surrounding erythema, drainage, or any signs of active infection. IMPRESSION/DIAGNOSIS: 1. Status post right frontal craniotomy for history of metastatic lung cancer and cranial wound infection with washout on 06/26/2019. 2. Left-sided weakness, stable. 3. Left ankle pain. PLAN: Dr. Wise and I have reviewed the patient's case and imaging. This time, he does not require any type of admission. Given his improvement in vasogenic edema and even clinically improvement in his strength, we will avoid starting steroids. He will continue with his PICC line antibiotics as per Dr. Schofield. We will plan to see him in followup in September as discussed during his last appointment 2 to 3 weeks ago. He is pleased with this and will certainly update his family. I have also reminded him to continue his Keppra, so that he does not miss a dose. I would like him to continue work with home health therapies to continue to improve his left-sided weakness. Please call with any changes of the patient's neurologic status. Otherwise, the patient can discharge at this time. Job ID: [id number]
== END 2019-07-21 14:26 | disposition home or self-care (01) ==
LOC: ERS 09:38
DX: S93.402A Sprain of unspecified ligament of left ankle, initial encounter (principal); C34.90 Malignant neoplasm of unspecified part of unspecified bronchus or lung; F32.9 Major depressive disorder, single episode, unspecified; F41.9 Anxiety disorder, unspecified; F17.210 Nicotine dependence, cigarettes, uncomplicated; Z79.899 Other long term (current) drug therapy; W17.89XA Other fall from one level to another, initial encounter
CPT/HCPCS: 70450

== ENCOUNTER 2019-09-14 10:22 | Day surgery (SDC) | payer MEDICARE, OTHER ==
[2019-09-11 16:35] VITALS: BMI 34.2
[2019-09-14] MEDS ORDERED: Ketamine 50 MG/ML (10ML VIAL) ONE (12:16)
[2019-09-14] MEDS ORDERED: Midazolam HCl 2 mg/2 ml Vial ONE (12:16)
[2019-09-14] MEDS ORDERED: Gadobenate Dimeglumine 529 MG/1 ML (20ML VIAL) ONE (12:31)
--- NOTE | 2019-09-14 13:54 | MRI ---
MRI BRAIN WITH AND WITHOUT CONTRAST: HISTORY: Headache. Brain mass. Previous frontal craniotomy. COMPARISON: 06/22/2019 FINDINGS: Gradient echo sequence: Hemosiderin deposition involving a metastatic lesion in the right centrum valentina iovale and medial left frontal lobe. Stable hypointensity along the medial left frontal lobe. Calvarium: Appropriate T1 marrow signal intensity. Stable post surgical change in the right frontal c alvarium. Midline brain parenchyma: Grossly unremarkable. Limited evaluation due to motion degradation. Cerebrum: Improved but persistent vasogenic edema involving the right frontal lobe. There is a residu al mass in the right centrum semiovale measuring 1.9 x 1.2 cm. Additional right cerebral masses are not appreciated. Additional stable scattered T2 and FLAIR white matter hyperintensities may represent chronic small vessel ischemic change. Ventricles: No evidence of hydrocephalus. Sinuses and mastoid air cells: Adequate aeration Diffusion: Central arterial flow is maintained. Absent restricted diffusion. Post contrast images: Residual enhancement involving the decreasing mass in the right centrum semiova le. Currently the enhancing mass measures 2.1 x 1.3 cm (previously measuring 3.4 x 2.9 cm). There is enhancement of the right frontal dura compatible with post surgical change. IMPRESSION: 1. Stable post surgical change involving the right frontal calvarium. 2. Interval decrease in size of an enhancing focus in the right frontal lobe (centrum semiovale). 3. No new enhancing cerebral or cerebellar lesions. Post contrast images are limited due to motion de gradation. Transcribed Date/Time: 09/14/2019 2:17 PM
== END 2019-09-14 15:57 | disposition home or self-care (01) ==
LOC: SDC/OP 10:22
PROVIDERS: ATTEND Surgery
DX: R51 Headache (principal); Z88.5 Allergy status to narcotic agent
CPT/HCPCS: 70553; A9577; J2250

== ENCOUNTER 2019-09-15 11:24 | Emergency (ER) | payer MEDICARE, OTHER | END 2019-09-15 14:38 | disposition home or self-care (01) | LOC: ERS 11:24 | DX: I10 Essential (primary) hypertension (principal); F41.9 Anxiety disorder, unspecified; F17.210 Nicotine dependence, cigarettes, uncomplicated; F32.9 Major depressive disorder, single episode, unspecified; Z79.899 Other long term (current) drug therapy | CPT/HCPCS: 93005 ==

== ENCOUNTER 2019-10-26 07:58 | Outpatient (CLI) | payer MEDICARE, OTHER ==
--- NOTE | 2019-10-26 10:08 | CT ---
CT Chest Abd Pelvis W Con History: Pain. 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 There are surgical changes right upper lobe. Similar perifiss ural nodule along the right minor fissure. Atelectatic changes left lower lobe. Mesh type material along the anterior left hemithorax is similar . Similar size of the mediastinal lymph nodes which are mildly enlarged with anterior paratracheal lymp h node axial image 25 measuring 11 mm short axis, similar. No new enlarged lymph nodes. No pericardial effusion. The pulmonary trunk is enlarged measuring up to 4.8 cm in size. Similar appearance of the hypertrophic adrenal glands. Left renal hypodensities are similar. No dilated loops of large or small bowel. The appendix is visualized and is normal. No retroperitonea l periaortic adenopathy. No suspicious osteolytic or osteoblastic lesions. No acute rib fracture. The abdominal aortic aneurysm is unchanged in size measuring up to 3.8 cm. Impression: Similar examination of the chest without evidence of recurrence or distant metastasis.
[2019-10-26] MEDS ORDERED: Iopamidol 370 76% 100 ML VIAL ONE (11:02)
== END 2019-10-26 07:59 | disposition home or self-care (01) ==
LOC: SCSCT 07:58 → CT 07:59
PROVIDERS: ATTEND Internal Medicine Hematology & Oncology
DX: C34.81 Malignant neoplasm of overlapping sites of right bronchus and lung (principal)
CPT/HCPCS: 71260; 74177; Q9967

== ENCOUNTER 2020-01-29 10:30 | Day surgery (SDC) | payer MEDICARE, OTHER ==
[2020-01-28 14:51] VITALS: BMI 36.2
[~2020-01-29 10:30] MED LIST changes: -Iopamidol 370 76% 100 ML VIAL ONE; +Lidocaine 1% PF 5 ML VIAL ONE; +PROPOFOL 200 MG/20 ML VIAL ONE
--- NOTE | 2020-01-29 13:18 | MRI ---
MRI BRAIN WITH AND WITHOUT CONTRAST: DATE: 01/29/2020 HISTORY: 59-year-old male follow-up hemorrhagic brain metastasis. Headache. COMPARISON: 09/14/2019 TECHNIQUE: Multiplanar, multisequence MRI of the brain performed pre- and post-IV injection of gadolinium based contrast agent. FINDINGS: The lesion in the right high cerebral convexity in the upper posterior frontal lobe, including involv ement of portions of precentral gyrus and superior frontal gyrus has shrunk. In particular, the component with irregular hemosiderin rim, and T2 hyperintense central component, has shrunk from prev ious dimensions of approximately 1.9 x 1.2 cm, to current dimensions of approximately 1.4 x 0.8 cm. The surrounding T2 hyperintensity in the brain parenchyma has also shrunk. This could represent vasog enic edema, gliosis, or combination of both. The edema portion appears to have shrunk. The central lesion still does enhance. Again noted is the tiny focus of hemosiderin stain representing remote tiny left parasagittal upper f rontal ovalle-white junction. There are no new foci of hemorrhage. There are mild to moderate chronic ischemic white matter changes. Focal shrinkage in the right upper cerebral parenchymal brain volume r esults in superior traction and superior displacement of the upper aspect of the body of the right lateral ventricle. No obstructive hydrocephalus. No new enhancing metastatic lesion. High right verte x old craniotomy change again noted. No mass effect, midline shift, restricted diffusion, or extra-axial fluid collection. Bilateral mastoid effusions are again noted. IMPRESSION: Continued interval shrinkage of the small enhancing hemorrhagic metastatic brain lesion at the right high cerebral convexity, and interval breakage of surrounding vasogenic edema.
[2020-01-29] MEDS ORDERED: hydrALAZINE 20 MG/ML VIAL ONE (13:34)
[2020-01-29] MEDS ORDERED: Magnevist 469MG/ML 20 ML VIAL ONE (15:39)
== END 2020-01-29 14:07 | disposition home or self-care (01) ==
LOC: MRI 10:30
PROVIDERS: ATTEND Surgery
DX: C79.31 Secondary malignant neoplasm of brain (principal); C80.1 Malignant (primary) neoplasm, unspecified; I10 Essential (primary) hypertension; E11.9 Type 2 diabetes mellitus without complications; F41.9 Anxiety disorder, unspecified; F33.9 Major depressive disorder, recurrent, unspecified; G47.33 Obstructive sleep apnea (adult) (pediatric); E66.9 Obesity, unspecified; E03.9 Hypothyroidism, unspecified; K21.9 Gastro-esophageal reflux disease without esophagitis; Z88.8 Allergy status to other drugs, medicaments and biological substances; Z79.899 Other long term (current) drug therapy; Z68.38 Body mass index [BMI] 38.0-38.9, adult; Z98.890 Other specified postprocedural states; Z79.84 Long term (current) use of oral hypoglycemic drugs
CPT/HCPCS: 70553; A9579; J0360; J2001; J2704